=== PATIENT | male | born 1945 | race Caucasian/White ===

== ENCOUNTER 2023-11-10 19:10 | Inpatient (IN) | payer MEDICARE, OTHER, SELFPAY ==
--- NOTE | ~2023-11-10 | XR_ITS ---
EXAMINATION: XR CHEST 2 VIEWS CLINICAL INFORMATION: Weakness. COMPARISON: None. TECHNIQUE: Frontal and lateral views of the chest were obtained. FINDINGS: The heart, great vessels, pulmonary vasculature and mediastinum are normal. The lungs show no focal infiltrate, effusion or pneumothorax. There is no acute osseous abnormality. XR/XR chest 2V IMPRESSION: No active cardiopulmonary disease.
--- NOTE | ~2023-11-10 | CT_ITS ---
EXAMINATION: CT head/brain wo IV con CLINICAL INFORMATION: Reason for Exam AMS COMPARISON: CT head 11/10/2023 TECHNIQUE: Contiguous axial imaging was performed from the skull base to vertex without intravenous contrast. Sagittal and coronal reformatted images were obtained. This CT examination was performed using dose optimization techniques as appropriate, variously including the following: * Automated exposure control * Adjustment of mA and/or kV according to patient size (this includes techniques or standardized protocols for targeted exams where dose is matched to indication/reason for exam; i.e. extremities or head) Use of iterative reconstruction technique DLP: 709 mGy-cm FINDINGS: Mild global cerebral volume loss. Patchy periventricular and deep white matter hypoattenuation is nonspecific but likely reflects sequelae of mild chronic microangiopathy. No territorial loss of vega-white differentiation. No acute intracranial hemorrhage or extra-axial fluid collection. No mass lesion, significant mass effect, or herniation pattern. Intracranial calcific atherosclerotic disease. The orbits are grossly normal. Paranasal sinuses and mastoid air cells are well aerated. 8 mm osteoma within the right frontoethmoidal recess. Osseous structures are intact. CT/CT head/brain wo IV con IMPRESSION: 1. No acute intracranial abnormality. Specifically, no CT evidence of acute intracranial hemorrhage, significant mass effect, hydrocephalus, or large territorial infarction. 2. Stable chronic findings as above.
--- NOTE | ~2023-11-10 | FL_ITS ---
FLUOROSCOPIC GUIDED LUMBAR PUNCTURE INDICATION: Concern for encephalitis TECHNIQUE/FINDINGS: Risks and benefits and possible complications were discussed with the patient's spouse and the consent form was signed. Patient was placed prone on the fluoroscopy table. The back was prepped and draped in routine sterile fashion. Betadine was used as a skin antiseptic. Utilizing fluoroscopic guidance, the L4-5 level was accessed with a 22 gauge quinkie spinal needle and clear CSF fluid obtained. Opening pressure was unable to be obtained due to the low pressure of the CSF. The flow of CSF fluid intermittently increased with any Valsalva movements, then immediately drop. 8 cc of fluid was sent for analysis. The needle was removed without immediate complications. Total fluoroscopy time: 1.05 minutes min Dose = 84.2 mGy DAP = 92.5 dGym2 FL/FL guided lumbar puncture LP IMPRESSION: Successful fluoroscopic lumbar puncture. -Opening pressure was unable to be obtained due to the low pressure of the CSF. The flow CSF of fluid intermittently increased with any Valsalva movements, which suggests a central canal stenosis at a higher level or myelographic block. An MRI of the spine could investigate this on a nonemergent basis. This procedure was performed by Hector Cota PA-C and supervised by Dr. Ferrari.
--- NOTE | ~2023-11-10 | CT_ITS ---
EXAMINATION: CT HEAD WITHOUT CONTRAST CLINICAL INFORMATION: Altered mental status COMPARISON: None TECHNIQUE: Contiguous axial imaging was performed from the skull base to vertex without intravenous administration of contrast. This CT examination was performed using dose optimization techniques as appropriate, variously including the following: *Automated exposure control *Adjustment of mA and/or kV according to patient size (this includes techniques or standardized protocols for targeted exams where dose is matched to indication/reason for exam; i.e. extremities or head) *Use of iterative reconstruction technique DLP: 702.11 mGy-cm FINDINGS: There is no evidence of acute intracranial hemorrhage or territorial infarction. Chronic white matter small vessel ischemic changes. Cerebral atrophy. No abnormal mass effect or midline shift is seen. Power to white matter differentiation is well preserved. No extra-axial fluid collections are identified. The ventricles are normal in size. There is no abnormal attenuation within the brain parenchyma. The osseous structures and soft tissues are normal. The mastoid air cells and visualized portions of the paranasal sinuses are well aerated. Atherosclerotic calcifications with slightly increased hyperattenuation of cerebral vasculature. CT/CT cervical spine wo IV con IMPRESSION: 1. No acute intracranial pathology. 2. Chronic white matter small vessel ischemic changes. EXAMINATION: Noncontrast CT scan of the cervical spine. INDICATION: Altered mental status COMPARISON: None. TECHNIQUE: Helical, multidetector axial images were obtained from the occiput to the upper thorax. Coronal and sagittal reformats of the cervical spine were provided for interpretation. DLP: 434.45 mGy-cm FINDINGS: No acute fractures or dislocations of the cervical spine are seen. Straightening the normal cervical curvature. Multilevel degenerative changes. Anatomic alignment and positioning of the vertebral bodies and posterior elements is noted. The atlantoaxial joint and craniovertebral articulations are normal without evidence of subluxation. There is no prevertebral soft tissue swelling. Calcified nodules of the bilateral thyroid lobes largest measuring up to 1.1 cm. Based on the recommendations of the ACR Incidental Thyroid Findings Committee (JACR 2014; 12(2):143-50), no imaging followup is recommended for incidental thyroid nodules with largest axial dimension less than 1.5 cm in patients greater than 35 years of age in the absence of high risk imaging features, symptomatic thyroid disease, or increased risk for thyroid cancer. Visualized portions of the lungs are unremarkable. IMPRESSION: 1. No acute visible fracture or dislocation. 2. Straightening the normal cervical curvature. 3. Multilevel degenerative changes.
--- NOTE | ~2023-11-10 | MR_ITS ---
EXAMINATION: MR BRAIN WITHOUT CONTRAST CLINICAL INFORMATION: Global amnesia. COMPARISON: CT head from 11/10/2023. TECHNIQUE: MRI of the brain was obtained using routine sequences without contrast. FINDINGS: No focal restricted diffusion is demonstrated to suggest acute or subacute cerebral ischemia. No evidence of acute or chronic hemorrhagic products on heme-sensitive imaging. Scattered and partially confluent periventricular, deep white matter, and brainstem T2 FLAIR hyperintensities consistent with mild to moderate underlying microangiopathy. Proportional prominence of the ventricles and sulcal spaces without evidence of obstructive hydrocephalus. No abnormal mass effect. No midline shift. Normal appearance of the pituitary gland. Normal positioning of the cerebellar tonsils. Normal arterial and venous vascular flow voids are present. Normal, homogeneous marrow signal. Moderate degenerative spondylosis arthropathy of the visualized upper cervical spine. Mild mucosal thickening of the paranasal sinuses. No signal abnormalities within the mastoids. MR/MR head/brain wo con IMPRESSION: 1. No acute intracranial abnormalities. 2. Mild to moderate underlying microangiopathy and generalized cerebral volume loss.
[2023-11-10 19:28] VITALS: BP 166/102; PULSE 85; O2SAT 99
[2023-11-10 19:31] VITALS: BP 182/89; PULSE 74; RESP 16; TEMP 36.6; O2SAT 100; BMI 27.4
--- NOTE | 2023-11-10 19:35 | ECG_ITS ---
Test Reason : PAIN Blood Pressure : / mmHG Vent. Rate : 070 BPM Atrial Rate : 070 BPM P-R Int : 156 ms QRS Dur : 110 ms QT Int : 400 ms P-R-T Axes : 040 -32 035 degrees QTc Int : 432 ms Normal sinus rhythm Left axis deviation Abnormal ECG No previous ECGs available Referred By: Hector Armijo Electronically Signed By:RACHELLE DOSS MD
[2023-11-10 19:39] VITALS: BP 182/89; PULSE 74; RESP 16; TEMP 36.6; O2SAT 98
--- NOTE | 2023-11-10 19:40 | PC.NURSE ---
Pt a&ox1, no signs of distress. Pt resting comfortaby in bed. Plan of care ongoing.
[2023-11-10 19:58] LABS: MANUAL DIFF FLAG NO
[2023-11-10 20:00] LABS: Basophils Absolute Auto 0.1 X10*3/uL (0.0-0.2); Basophils Percent Auto 0.6 % (0-2); Eosinophils Percent Auto 0.5 % (0-4); Hematocrit 49.2 % (42.0-52.0); Hemoglobin 17.6 g/dl (14.0-18.0); Imm Gran Abs Auto 0.03 X10*3/uL (0.00-0.03); Imm Gran Pct Auto 0.4 % (0.0-0.4); Lymphocytes Absolute Auto 0.9 X10*3/uL (1.2-4.9); Lymphocytes Percent Auto 10.3 % (20-40); Mean Corpuscular HGB Conc 35.8 g/dl (31.0-36.0); Mean Corpuscular Hemoglobin 35.1 pg (27.0-33.0); Mean Corpuscular Volume 98.2 fL (80.0-98.0); Mean Platelet Volume 9.4 fL (9.4-12.4); Monocytes Absolute Auto 0.9 X10*3/uL (0.1-1.2); Monocytes Percent Auto 9.9 % (2-11); Neutrophils Absolute Auto 6.7 x10*3/uL (2.0-8.3); Neutrophils Percent Auto 78.3 % (45-73); Platelet Count 219 X10*3/uL (160-400); Red Blood Count 5.01 X10*6/uL (4.60-5.80); Red Cell Distribution Width 12.8 % (11.0-16.0); White Blood Count 8.6 X10*3/uL (4.8-10.8)
--- NOTE | 2023-11-10 20:04 | ED.GENADULT ---
HPI - General Adult General Chief complaint: Altered Mental Status Stated complaint: found on side road, A&O x1, confused Time Seen by Provider: 11/10/23 19:13 Source: patient and EMS Mode of arrival: EMS Limitations: other (Patient is a poor historian) History of Present Illness ED Provider: Aleksander HPI narrative: 78-year-old male arrives via EMS He has no complaints and states ?I just went out for a drive. The patient was apparently found in the side of the road. He reports he drove from [place], [place] and had to get gas. The patient reports he lives alone. He states that he feels well. He denies any pain He denies any medical history and states that he does not take any medications There are no signs of trauma On arrival to the ED, the patient's vital signs are significant for hypertension of 182/89, otherwise vital signs are within normal limits. Related Data Allergies Allergy/AdvReac Type Severity Reaction Status Date / Time Penicillins Allergy Rash Verified 11/10/23 20:01 Review of Systems Constitutional: Constitutional: Denies body ache(s), Denies chills, Denies fever(s) and Denies headache(s) Eyes: Eyes: Denies blurry vision ENT: Denies vertigo, Denies dizziness and Denies headache(s) Cardiovascular: Cardiovascular: Denies chest pain and Denies dyspnea Respiratory: Respiratory: Denies cough and Denies dyspnea Gastrointestinal: Gastrointestinal: Denies abdominal pain, Denies nausea and Denies vomiting Musculoskeletal: Musculoskeletal: Denies back pain Integumentary/Breasts: Skin/Breast: Denies rash Neurologic: Denies vertigo, Denies dizziness and Denies headache(s) [facility] Social History Social History Smoked in Last 30 Days: No Use of substances other than those prescribed or required for medical reasons: No Do you have a plan to hurt others: No Plan Physical Exam ED Vital Signs: Vital Signs - 24 hr 11/10/23 19:31 11/10/23 19:39 11/10/23 23:28 Temperature 97.9 F 97.9 F 98.3 F Pulse Rate 74 74 74 Respiratory Rate 16 16 12 Blood Pressure 182/89 H 182/89 H 150/79 H Pulse Oximetry 100 98 96 Oxygen Delivery Method Room Air Room Air Room Air BMI result Body Mass Index 27.4 Const General: healthy appearing, comfortable, no acute distress, alert and awake Nutritional Appearance: well nourished Orientation/consciousness: oriented to person, No oriented to place and No oriented to time HENKS Head: Yes normocephalic and Yes atraumatic Eyes Eyelids: Yes eyelids normal Conjunctivae: conjunctivae normal Sclerae: sclerae normal Corneas: corneas normal Pupils: Equal, round and reactive pupils present EOM: EOMs intact bilaterally Neck Neck: Yes full ROM Resp Effort & Inspection: normal respiratory effort, able to speak in complete sentences, no audible wheezes and not labored Auscultation: clear to auscultation bilaterally Cardio Rate: regular rate Rhythm: regular rhythm GI Inspection: No distended Palpation (GI): Soft to palpation, not firm, nontender, no guarding and not rigid Skin General skin exam: elasticity normal Neuro General: oriented to person, No oriented to place and No oriented to time Cranial nerves: Yes CN's II-XII intact bilaterally, Yes Equal, round and reactive pupils present and Yes Bilaterally intact EOM present Cognition (Neuro): normal cognition Extrem Other: Moving all extremities well without any obvious deformities Course Reevaluation(s) Reevaluation #1: The patient's daughter called to discuss with nursing. Apparently, the patient went missing around 10:00 a.m. and family put out a code silver at 10:00 a.m. this morning. When he ran out of gas, [employer] police found the patient. Apparently the patient does not carry an official diagnosis of dementia Time: 20:10 Reevaluation #2: Patient's workup largely unremarkable, there is no metabolic cause for his symptoms. Unfortunately attempts to reach back out to the patient's daughter have been unsuccessful. The patient will remain in the ER as a case management social hold until the morning. Time: 23:01 Medical Decision Making Medical Decision Making MDM Narrative: 78-year-old male with unknown past medical history presents for evaluation after being found on the side of the road. The patient has no complaints. We do not know his medical history, any medications that he takes. He appears well, stable without any evidence of traumatic injuries. He is afebrile. He has no respiratory or GI symptoms. He is alert and oriented to person only, but he is answering questions appropriately. His presentation is most likely consistent with dementia. However given that we have no history for the patient we will begin and drug screen. Differential Diagnosis Differential Diagnoses: The differential diagnosis associated with the presentation includes Alzheimer's dementia Delirium Metabolic encephalopathy Drug toxicity Altered mental status CVA Intracranial hemorrhage Lab Data 11/10/23 19:50 11/10/23 19:50 Labs: Lab Results 11/10/23 11/10/23 Range/Units 19:50 20:12 WBC 8.6 (4.8-10.8) X10*3/uL RBC 5.01 (4.60-5.80) X10*6/uL Hgb 17.6 (14.0-18.0) g/dl Hct 49.2 (42.0-52.0) % MCV 98.2 H (80.0-98.0) fL MCH 35.1 H (27.0-33.0) pg MCHC 35.8 (31.0-36.0) g/dl RDW 12.8 (11.0-16.0) % Plt Count 219 (160-400) X10*3/uL MPV 9.4 (9.4-12.4) fL Immature Gran % (Auto) 0.4 (0.0-0.4) % Neut % (Auto) 78.3 H (45-73) % Lymph % (Auto) 10.3 L (20-40) % [place] % (Auto) 9.9 (2-11) % Eos % (Auto) 0.5 (0-4) % Baso % (Auto) 0.6 (0-2) % Lymph # (Auto) 0.9 L (1.2-4.9) X10*3/uL [place] # (Auto) 0.9 (0.1-1.2) X10*3/uL Eos # (Auto) 0.0 (0.0-0.4) X10*3/uL Baso # (Auto) 0.1 (0.0-0.2) X10*3/uL Abs Immat Gran (auto) 0.03 (0.00-0.03) X10*3/uL Absolute Neuts (auto) 6.7 (2.0-8.3) x10*3/uL Absolute Nucleated RBC 0.000 (0.0-0.012) X10*3/uL Nucleated RBC % (auto) 0.0 (0.0-0.2) /100WBC Sodium 142 (135-145) mmol/L Potassium 4.3 (3.3-5.1) mmol/L Chloride 109 H (96-108) mmol/L Carbon Dioxide 23 (22-29) mmol/L Anion Gap 14 (12-20) BUN 14 (9-16) mg/dL Creatinine 0.93 (0.5-1.4) mg/dL Estim Creat Clear Calc 67.5 Estimated GFR > 60 POC Glucose 123 H (60-115) mg/dL Random Glucose 138 H (60-115) mg/dL Calcium 9.8 (8.4-10.2) mg/dL Total Bilirubin 1.3 H (0.0-1.0) mg/dL AST 34 (5-37) U/L ALT 45 H (0-40) U/L Alkaline Phosphatase 53 (39-117) U/L Ammonia 25 (13-55) umol/L Total Protein 7.2 (6.5-8.0) g/dL Albumin 4.1 (3.5-5.0) g/dL Lipase 21 (8-78) U/L Ethyl Alcohol < 10 mg/dL Discharge Plan Discharge Clinical Impression: Confusion Patient Disposition: Still a Patient Print Language: [place]ian
--- NOTE | 2023-11-10 20:10 | PC.NURSE ---
This RN received a call from pts daughter Fallon @ [phone]. Per daughter pt left home this am @ 10am and never returned so they placed a code silver on him. Pt has an allergy to penicillin and has a pmh of HTN, DM, Hyperlipidemia. Daughter also reports pt does not have a hx of dementia. Provider Paulo updated. Plan of care ongoing.
[2023-11-10 20:18] LABS: Glucose, Whole Blood 123 mg/dL (60-115)
[2023-11-10 20:30] LABS: Alanine Aminotransferase 45 U/L (0-40); Albumin Level 4.1 g/dL (3.5-5.0); Alkaline Phosphatase 53 U/L (39-117); Anion Gap 14 (12-20); Aspartate Amino Transferase 34 U/L (5-37); Bilirubin Total 1.3 mg/dL (0.0-1.0); Blood Urea Nitrogen 14 mg/dL (9-16); Calcium 9.8 mg/dL (8.4-10.2); Carbon Dioxide 23 mmol/L (22-29); Chloride 109 mmol/L (96-108); Creatinine Clr Calc Pharmacy 67.5; Estimated Glomerular Filt Rate > 60; Ethanol < 10 mg/dL; Glucose Random 138 mg/dL (60-115); Lipase 21 U/L (8-78); Potassium 4.3 mmol/L (3.3-5.1); Sodium 142 mmol/L (135-145); Total Protein 7.2 g/dL (6.5-8.0)
[2023-11-10 20:49] LABS: Ammonia 25 umol/L (13-55)
--- NOTE | 2023-11-10 21:11 | PC.NURSE ---
This RN attempted to call pts daughter and unable to reach with # left. [phone] Plan of care ongoing.
[2023-11-10 23:28] VITALS: BP 150/79; PULSE 74; RESP 12; TEMP 36.8; O2SAT 96
--- NOTE | 2023-11-11 02:06 | PC.NURSE ---
Pt requested and given urinal. Plan of care ongoing.
[2023-11-11 03:28] LABS: Appearance Urine Clear; Color Urine Yellow; Glucose Urine UA >=1000 mg/dL (Negative); Leukocyte Esterase Urine Negative (Negative); Nitrite Urine Negative (Negative); PH 5.5 (5.0-9.0); Specific Gravity - Urine >= 1.030 (1.005-1.025); UMIC TRIGGER UACC YES; Urine Blood Negative (Negative); Urine Ketones 80 mg/dL (Negative); Urine Protein Negative (Neg-Trace)
[2023-11-11 03:31] LABS: Bacteria Urine None Seen (None Seen); Hyaline Casts Urine 0-2 /LPF (0-2); RBC Urine 0-2 /HPF (0-2); Squamous Epithelial Cell Urine 0-2 /HPF (0-2); WBC Urine 0-5 /HPF (0-5)
[2023-11-11 03:36] LABS: Amphetamine Screen Urine Not Detected (Not Detect); Barbiturates, Urine Not Detected (Not Detect); Benzodiazepines Screen Urine Not Detected (Not Detect); Buprenorphine Scr Not Detected (Not Detect); Cannabinoid Screen Urine Not Detected (Not Detect); Cocaine Screen Urine Not Detected (Not Detect); Fentanyl, urine Not Detected (Not Detect); Methadone Screen, Urine Not Detected (Not Detect); Opiate Screen Urine Not Detected (Not Detect); Oxycodone Screen Urine Not Detected (Not Detect); Phencyclidine Screen Urine Not Detected (Not Detect)
[2023-11-11 06:14] VITALS: BP 160/84; PULSE 70; RESP 16; TEMP 36.4; O2SAT 98
--- NOTE | 2023-11-11 06:38 | PC.NURSE ---
This RN called daughter Fallon @ [phone] and this time phone finally rang. Daughter will come and pick him up pt but lives an hour away.
--- NOTE | 2023-11-11 08:06 | PC.NURSE ---
patient resting quietly, daughter is on her way to pick patient up for d/c. respirations equal and unlabored
--- NOTE | 2023-11-11 09:30 | PC.NURSE ---
called patients daughter, she states she can not come orange picking supervisor patient until she can speak to her mom ( who is blind and on oxygen) to orange picking supervisor enrique father, and she needs to get his car out of impound before coming to get patient. patient daughter states she is unsure when she will be here to pick him up, it may be closer to 11am.
--- NOTE | 2023-11-11 12:59 | ECG_ITS ---
Test Reason : AMS Blood Pressure : / mmHG Vent. Rate : 073 BPM Atrial Rate : 073 BPM P-R Int : 144 ms QRS Dur : 096 ms QT Int : 404 ms P-R-T Axes : 050 -35 025 degrees QTc Int : 445 ms Normal sinus rhythm Left axis deviation Abnormal ECG When compared with ECG of 10-NOV-2023 19:40, No significant change was found Referred By: Fitz Hale Electronically Signed By:LARISSA KENNEDY
[2023-11-11 13:26] LABS: Venous Blood Gas Refer to POC result
[2023-11-11 13:31] LABS: VBG Base Excess -5.3 mmol/L; VBG HCO3 18 mmol/L (22-26); VBG pCO2 30 mmHg; VBG pH 7.38 (7.32-7.43); VBG pO2 84 mmHg
[2023-11-11 13:32] VITALS: BP 160/79; PULSE 85; RESP 25; TEMP 36.3; O2SAT 98
--- NOTE | 2023-11-11 13:36 | PC.NURSE ---
patient family at bedside, patient is in catatonic state, patient mentation is waxing and weaning, neuros intact, patients eyes track movement . patient not able to follow commands, will nod head yes and no to questions at times. provider alerted of changed in patient status, POC obtained 84, IV placed, labs drawn. patient changed into hospital attire, placed on monitor, VSS.
--- NOTE | 2023-11-11 13:42 | PC.NURSE ---
patient repositioned in bed, patient given sip of iced tea and water, patient looked at this RN and stated, this tastes damn good and laughed. family at bedside
[2023-11-11 13:56] LABS: MANUAL DIFF FLAG NO
[2023-11-11 13:57] LABS: Basophils Percent Auto 0.4 % (0-2); Eosinophils Percent Auto 0.4 % (0-4); Hematocrit 50.1 % (42.0-52.0); Hemoglobin 17.8 g/dl (14.0-18.0); Imm Gran Abs Auto 0.03 X10*3/uL (0.00-0.03); Imm Gran Pct Auto 0.3 % (0.0-0.4); Lymphocytes Absolute Auto 1.1 X10*3/uL (1.2-4.9); Mean Corpuscular HGB Conc 35.5 g/dl (31.0-36.0); Mean Corpuscular Volume 98.6 fL (80.0-98.0); Mean Platelet Volume 9.7 fL (9.4-12.4); Monocytes Absolute Auto 0.9 X10*3/uL (0.1-1.2); Monocytes Percent Auto 9.8 % (2-11); Neutrophils Absolute Auto 7.1 x10*3/uL (2.0-8.3); Neutrophils Percent Auto 77.1 % (45-73); Platelet Count 239 X10*3/uL (160-400); Red Blood Count 5.08 X10*6/uL (4.60-5.80); Red Cell Distribution Width 12.7 % (11.0-16.0); White Blood Count 9.2 X10*3/uL (4.8-10.8)
[2023-11-11 14:03] LABS: Prothrombin Time 12.3 SEC (11.1-13.3)
[2023-11-11 14:14] VITALS: BP 159/81; PULSE 74; RESP 26; O2SAT 99
[2023-11-11 14:17] LABS: B Type Natriuretic Peptide 23 pg/mL (<100)
[2023-11-11 14:18] LABS: Alanine Aminotransferase 45 U/L (0-40); Albumin Level 4.3 g/dL (3.5-5.0); Alkaline Phosphatase 55 U/L (39-117); Anion Gap 18 (12-20); Aspartate Amino Transferase 25 U/L (5-37); Bilirubin Direct 0.5 mg/dL (0.0-0.5); Bilirubin Total 1.7 mg/dL (0.0-1.0); Blood Urea Nitrogen 21 mg/dL (9-16); C Reactive Protein 0.11 mg/dL (< or = 0.50); Calcium 9.8 mg/dL (8.4-10.2); Carbon Dioxide 19 mmol/L (22-29); Chloride 108 mmol/L (96-108); Creatinine Clr Calc Pharmacy 77.5; Estimated Glomerular Filt Rate > 60; Glucose Random 104 mg/dL (60-115); Magnesium 2.2 mg/dL (1.6-2.6); Potassium 4.2 mmol/L (3.3-5.1); Sodium 141 mmol/L (135-145); Total Protein 7.5 g/dL (6.5-8.0)
[2023-11-11 14:20] LABS: Acetaminophen LAB < 3 mcg/mL (<30); Salicylate < 5.0 mg/dL (15-30); Troponin-I High Sensitivity < 2.7 ng/L (<3.5-35.0)
--- NOTE | 2023-11-11 14:26 | PC.NURSE ---
patient sitting up in bed, awake and alert, had ice cream as a snack, now eating potato chips.
[2023-11-11] MEDS: Midazolam HCl/PF 2 MG/2 ML VIAL 6 MG IVPUSH (14:29)
[2023-11-11 14:33] LABS: Thyroid Stimulating Hormone 1.74 uIU/mL (0.32-4.0)
[2023-11-11 14:47] LABS: Erythrocyte Sedimentation Rate 2 MM/HR (0-15)
[2023-11-11 15:19] VITALS: BP 124/72; PULSE 85; RESP 22; O2SAT 95
[2023-11-11] MEDS: 0.9 % Sodium Chloride 1,000 ML 999 ML IV (15:21)
[2023-11-11 19:22] VITALS: BP 137/83; PULSE 94; RESP 17; TEMP 36.7; O2SAT 98
[2023-11-11 20:06] LABS: Glucose, Whole Blood 87 mg/dL (60-115)
--- NOTE | 2023-11-12 | EEG_ITS ---
This is a 16-channel EEG with an EKG lead. The patient is reported drowsy during the tracing. Background EEG rhythm is mixed theta, beta; medium amplitude with intermittent sharply contoured theta range activity in right frontocentral area. Cardiac lead did not reveal any significant arrhythmia. Photic stimulation did not produce any significant driving. Hyperventilation was not performed. IMPRESSION: Mildly abnormal EEG suggestive of right frontocentral abnormality with suspicion of underlying structural abnormality such as a stroke with some irritability that could cause complex partial seizures. MD UMAIR Hernandez/GEOVANNY / [id number]
[2023-11-12 03:52] VITALS: BP 150/74; PULSE 78; RESP 17; TEMP 36.4; O2SAT 98
--- NOTE | 2023-11-12 06:01 | MHC.EDTECH ---
PT resting in bed PT expresses no other needs at this time Call light within reach Plan of care ongoing
--- NOTE | 2023-11-12 08:36 | MHC.CM.ED ---
Case management consult received over the weekend. Per Care Team assessment, psych consult is pending for possible inpatient psych admissions. CM consult deferred at this time.
--- NOTE | 2023-11-12 10:03 | PC.NURSE ---
this RN resumed care of pt at this time. pt responsive to verbal stimuli when spoken to. makes eye contact then slowly gazes away. neuros intact. pt not responding to this RN's questions at this time. pt resting in stretcher in no apparent distress. no sob/wob noted. respirations even/unlabored. pt waiting for psych consult to be completed. plan of care ongoing. call lisa placed within reach.
--- NOTE | 2023-11-12 12:15 | PHA.MEDREC ---
Pharmacy Consult ? Medication Reconciliation Pharmacy has completed the medication reconciliation. Spoke to daughter Fallon over the phone to confirm her dads medications.
--- NOTE | 2023-11-12 12:23 | PC.NURSE ---
pt seen by hospitalist at this time. upon pt assessment - pt alert and oriented x 0. pt has no recollection to memory at this time. pt unaware on what his name is even after hospitalist just notified him of his name. pt also unaware on where he is, why he's here, or what the year is. pt also does not seem to be concerned about having no recollection. pt continues to sit calm/in no apparent distress in the stretcher at this time. neuros remain intact. no sob/wob noted. respirations even/unlabored. plan of care ongoing. call lisa placed within reach.
--- NOTE | 2023-11-12 12:39 | PM.IMHP ---
History of Present Illness Date of Service: 11/12/23 Attending physician on admission: Med Forde Chief Complaint: amnesia 78 year old male with history on non insulin dependent type 2 diabetes, hld, htn presented to the ED via EMS [place] [address] [place] [facility] state police. The patient resides in [place], visited a [facility] where he left his ID and then drove to [place] for an unknown reason but ultimately ran out of gas on the highway. Upon questioning, the police found him confused and called EMS for transport and evaluation in the ED. Since in the ED, the patient has exhibited global amnesia, having no recollection of why he is here, about significant details of his life, and at times unable to recall his own name. He has been boarding in the ED for the past 2 days with unremarkable medical work up and upon evaluation by care team and psychiatry was recommended for medical admission for neurological evaluation. Upon questioning, the patient is unable to tell me who he is, does not even recall his name when given the information. He does not know where he is but recognizes that he may be in a hospital when asked. He does not know the year. He does not recall his (whom he lives with and cares for), his daughter, or where he resides. This author reminds him of his name and he is still unable to recall the name when asked again minutes later. Upon questioning his daughter, the patient has been exhibiting anxiety and panic attacks over the last few months with concerns that he cannot care for his , about HCP and living will etc. She states he has been acting strange for about 2 months. He was recently started on buspar by pcp but only took a few doses. He does not use any substances. He is calm upon questioning, not exhibiting restlessness, agitation, or anxiety. He has no complaints or concerns about him being here. Since arrival has been hypertensive, but vitals otherwise stable. He has not received his lisinopril in the ED at this time. Hematology studies unremamarkable. Renal function normal, no uremia. Lytes WNL. Glucose 116. Ammonia WNL. TSH WNL. VBG reassuring, no hypercapnia. Vitamin B12 and folic acid levels pending. CXR unremarkable. Head CT does show some chronic microvascular changes but no acute abnormality. Cervical spine CT negative for acute osseous abnormality. UTox negative. UA not indicative of infection. EKG shows NSR, no actue ischemic changes. Review of Systems Review of Systems: Yes Unobtainable due to mental status [facility] Medical History HLD (hyperlipidemia) HTN (hypertension) Type 2 diabetes mellitus Social History Household Members: Spouse Housing: House Do you presently have visiting nurse or other home services: No Patient Tobacco Use Status: Never used Tobacco Smoked in Last 30 Days: No Use of substances other than those prescribed or required for medical reasons: No Currently Displaying Signs/Symptoms of Drug Intoxication Withdrawal: No Do you feel safe in your current relationship?: Yes Advance Directives: No Advance Directives Information Provided: No Do you have a plan to hurt others: No Plan Recently lost weight without trying: Unsure Meds Allergies Allergy/AdvReac Type Severity Reaction Status Date / Time Penicillins Allergy Rash Verified 11/10/23 20:01 Active Medications: Current Medications Acetaminophen (Acetaminophen 325 Mg Tablet) 650 mg PO Q6H PRN PRN Reason: Pain, Mild (1-3), h/a, fever Enoxaparin Sodium (Enoxaparin Sodium 40 Mg/0.4 Ml Syringe) 40 mg SUBCUT Q24H [facility] Glucose (Glucose Gel 15 Gm Gel..Gram.) 15 gm PO Q15M PRN; Protocol PRN Reason: per Hypoglycemia Standing Ord. Dextrose (D10) 250 mls @ 750 mls/hr IV Q15M PRN; Protocol PRN Reason: per Hypoglycemia Standing Ord. Insulin Human Lispro (Insulin Lispro 100 Unit/Ml 3 Ml Vial) 0 unit SUBCUT QIDACHS [facility]; Protocol Magnesium Hydroxide (Milk Of Magnesia 30 Ml Oral.Susp) 30 ml PO DAILY PRN PRN Reason: Constipation Ondansetron HCl (Ondansetron Hcl 4 Mg/2 Ml Vial) 4 mg IVPUSH Q8H PRN PRN Reason: Nausea and Vomiting Sodium Chloride (0.9 % Sodium Chloride Flush 3 Ml Syringe) 3 ml IVFLUSH QSHIFT [facility] Home Medications ?Medication ?Instructions ?Recorded ?Confirmed ?Last Taken ?Type buspirone 7.5 mg tablet 7.5 mg PO BID 11/12/23 11/12/23 Unknown History linagliptin 5 mg tablet (Tradjenta) 5 mg PO DAILY 11/12/23 11/12/23 11/10/23 06:00 History lisinopril 20 mg tablet 20 mg PO DAILY 11/12/23 11/12/23 11/10/23 06:00 History simvastatin 20 mg tablet 20 mg PO BEDTIME 11/12/23 11/12/23 11/09/23 19:00 History Physical Exam Vital Signs and Narrative: Vital Signs: Last Vital Signs Temp 97.6 F 11/12/23 03:52 Pulse 78 11/12/23 03:52 Resp 17 11/12/23 03:52 BP 150/74 H 11/12/23 03:52 Pulse Ox 98 11/12/23 03:52 O2 Del Method Room Air 11/12/23 03:52 BMI result Body Mass Index 27.4 Constitutional - Awake and Alert, No apparent distress Eyes - PERRLA, EOMI Cardiovascular - S1S2, RRR, No edema Respiratory - Normal lung expansion, Normal respiratory effort, No respiratory distress, CTA bilaterally Gastrointestinal - NT / ND; +BS; No rebound or guarding Extremities - no calf tenderness bilaterally, no swelling Skin - Warm/Dry Neurological - Alert & oriented x3, CN II-XII in tact, 5/5 strength BUE and BLE, symmetric patellar reflexes, downgoing babinski Psychological - calm, not anxious appearing, affect somewhat flat. Does not recall any part of his life including his name even when prompted with name, cannot recall Results Labs 11/12/23 13:20 11/12/23 13:20 Labs: Laboratory Results - last 24 hr 11/11/23 11/11/23 11/11/23 12:52 13:25 13:30 MCV 98.6 H MCH 35.0 H MCHC 35.5 RDW 12.7 Plt Count 239 MPV 9.7 Immature Gran % (Auto) 0.3 Neut % (Auto) 77.1 H Lymph % (Auto) 12.0 L Ector % (Auto) 9.8 Eos % (Auto) 0.4 Baso % (Auto) 0.4 Lymph # (Auto) 1.1 L Ector # (Auto) 0.9 Eos # (Auto) 0.0 Baso # (Auto) 0.0 Abs Immat Gran (auto) 0.03 Absolute Neuts (auto) 7.1 Absolute Nucleated RBC 0.000 Nucleated RBC % (auto) 0.0 ESR 2 PT 12.3 INR 1.0 VBG pH 7.38 VBG pCO2 30 VBG pO2 84 VBG HCO3 18 L VBG O2 Saturation 99.0 VBG Base Excess -5.3 Anion Gap Estim Creat Clear Calc Estimated GFR POC Glucose 87 Random Glucose Calcium Magnesium Total Bilirubin Direct Bilirubin AST ALT Alkaline Phosphatase Troponin I High Sens < 2.7 C-Reactive Protein B-Natriuretic Peptide 23 Total Protein Albumin TSH Salicylates < 5.0 L Acetaminophen < 3 11/11/23 13:31 MCV MCH MCHC RDW Plt Count MPV Immature Gran % (Auto) Neut % (Auto) Lymph % (Auto) Ector % (Auto) Eos % (Auto) Baso % (Auto) Lymph # (Auto) Ector # (Auto) Eos # (Auto) Baso # (Auto) Abs Immat Gran (auto) Absolute Neuts (auto) Absolute Nucleated RBC Nucleated RBC % (auto) ESR PT INR VBG pH VBG pCO2 VBG pO2 VBG HCO3 VBG O2 Saturation VBG Base Excess Anion Gap 18 Estim Creat Clear Calc 77.5 Estimated GFR > 60 POC Glucose Random Glucose 104 Calcium 9.8 Magnesium 2.2 Total Bilirubin 1.7 H Direct Bilirubin 0.5 AST 25 ALT 45 H Alkaline Phosphatase 55 Troponin I High Sens C-Reactive Protein 0.11 B-Natriuretic Peptide Total Protein 7.5 Albumin 4.3 TSH 1.74 Salicylates Acetaminophen Assessment and Plan (1) Amnesia, global, transient: Status: Acute Plan 78 year old male with history on non insulin dependent type 2 diabetes, hld, htn to be observed for global amnesia #Global amnesia -pt exhibiting both anterograde and retrograde amnesia, found confused walking on the highway. Unable to recall any feature of his life including his own name -Head CT shows chronic microangiopathic but no acute intracranial abnormality or evidence of infarction -infectious workup negative. No uremia, ammonia level normal. TSH normal, VBG reassuring without hypercapnia. Folic acid 11.7, vitamin B12 slightly low at 152. Add vitamin b12 1000mg IM q21d per neuro. Add thiamine and folic acid given unknown history of etoh abuse -tick panel and lyme pcr ordered. 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 Quality Stroke Does the patient have a stroke diagnosis?: No VTE Prior VTE?: No VTE Risk Level:: Medical - moderate - high VTE Device Contraindication: Treatment Not Indicated VTE Drug Contraindication: N/A - Med Ordered
[2023-11-12] MEDS: lisinopriL 20 MG TABLET PO (13:17)
[2023-11-12] MEDS: Enoxaparin Sodium 40 MG/0.4 ML SYRINGE SUBCUT (13:18)
[2023-11-12 13:22] LABS: MANUAL DIFF FLAG NO
[2023-11-12 13:27] LABS: Basophils Percent Auto 0.3 % (0-2); Eosinophils Absolute Auto 0.1 X10*3/uL (0.0-0.4); Eosinophils Percent Auto 0.6 % (0-4); Hematocrit 45.9 % (42.0-52.0); Hemoglobin 16.2 g/dl (14.0-18.0); Imm Gran Abs Auto 0.04 X10*3/uL (0.00-0.03); Imm Gran Pct Auto 0.4 % (0.0-0.4); Lymphocytes Percent Auto 10.3 % (20-40); Mean Corpuscular HGB Conc 35.3 g/dl (31.0-36.0); Mean Corpuscular Hemoglobin 34.5 pg (27.0-33.0); Mean Corpuscular Volume 97.9 fL (80.0-98.0); Mean Platelet Volume 9.3 fL (9.4-12.4); Monocytes Percent Auto 10.4 % (2-11); Neutrophils Absolute Auto 7.7 x10*3/uL (2.0-8.3); Platelet Count 207 X10*3/uL (160-400); Red Blood Count 4.69 X10*6/uL (4.60-5.80); Red Cell Distribution Width 12.5 % (11.0-16.0); White Blood Count 9.9 X10*3/uL (4.8-10.8)
[2023-11-12 13:39] LABS: Ammonia 25 umol/L (13-55)
[2023-11-12 13:42] LABS: Anion Gap 18 (12-20); Blood Urea Nitrogen 22 mg/dL (9-16); Calcium 9.5 mg/dL (8.4-10.2); Carbon Dioxide 19 mmol/L (22-29); Chloride 108 mmol/L (96-108); Creatinine Clr Calc Pharmacy 82.6; Estimated Glomerular Filt Rate > 60; Glucose Random 116 mg/dL (60-115); Potassium 4.5 mmol/L (3.3-5.1); Sodium 140 mmol/L (135-145)
--- NOTE | 2023-11-12 13:49 | P.CNPS_ITS ---
History of Present Illness Date of Service: 11/12/2023 Chief Complaint: global amnesia Reason for Consult: anterograde amnesia/retrograde amnesia Sources of Information: patient interviewed, chart reviewed and crisis/core team assessment reviewed Additional Sources of Information: [facility] [phone] [facility] Narrative: Mr. aGr was brought via EMS by police on 11/09 after found by police on side of the road apparently confused. 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 It appears he never made it to the [facility]. He lives in [place] and it is unclear as to how he ended up in [facility]. Family issued a silver alert, which then in turn alerted police to search for his car. In the ED, pt reported he lives alone and denied any physical concerns. His utox is negative. CBC without leukocytosis, elevated MCV with no anemia. CMP no electrolyte abnormality. renal function stable, slightly elevation of BUN 21, Cr 0.81, creatinine clearance 77.7. CRP 0.11. TSH 1.74. Afebrile. No signs of respiratory distress. No signs of infection. UA positive for glucose. SBP elevated in 180's. head ct chronic atrophy and microvascular changes, no acute findings although does describe hypoattenuation of cerebral vasculature. Per provider, pt yesterday presented with delayed in speech, at times staring, flaccidity of upper and lower extremities. Due to staring and apparent mutism, he was given versed to r/o catatonia, but no significant improvement. Today, pt seen in the ED. He is alert and in no signs of distress. Pt responds to this poem writer when I call his name. However, when asked if he knows where he is, he states I don't know. When asked if he knows the month, year, date, he also states he does not know where he is. When asked about his personal history, pt states he does not know whether he is or not, or if he has children or not. He does not knows how long he has been here. He does not seemed bothered or concern about not knowing this information. He describes mood as good. He denies any physical concerns. His speech is without delayed in response, slightly more spontaneous.His attention seems to be intact. He does not appear internally preoccupied. No overt delusional content noted or reported other than amnesia. Per daughter, pt last week had some out of character behaviors, like he was running naked around the house and had stated that he was feeling hot. However, to her knowledge, pt was oriented to place, and was able to recognize family. Daughter states he is a very private and he would never be naked around the house. [facility] Medical History HLD (hyperlipidemia) HTN (hypertension) Type 2 diabetes mellitus Diagnostics Vital Signs (24Hr): Vital Signs - 24 hr 11/11/23 14:14 11/11/23 15:19 11/11/23 19:22 Temperature 98.0 F Pulse Rate 74 85 94 Respiratory Rate 26 H 22 H 17 Blood Pressure 159/81 H 124/72 137/83 Pulse Oximetry 99 95 98 Oxygen Delivery Method Room Air Room Air Room Air 11/12/23 03:52 Temperature 97.6 F Pulse Rate 78 Respiratory Rate 17 Blood Pressure 150/74 H Pulse Oximetry 98 Oxygen Delivery Method Room Air BMI result Body Mass Index 27.4 Labs 11/12/23 13:20 11/12/23 13:20 Labs: Laboratory Results - last 48 hr 11/10/23 11/10/23 11/11/23 19:50 20:12 03:17 WBC 8.6 RBC 5.01 Hgb 17.6 Hct 49.2 MCV 98.2 H MCH 35.1 H MCHC 35.8 RDW 12.8 Plt Count 219 MPV 9.4 Immature Gran % (Auto) 0.4 Neut % (Auto) 78.3 H Lymph % (Auto) 10.3 L Ritchie % (Auto) 9.9 Eos % (Auto) 0.5 Baso % (Auto) 0.6 Lymph # (Auto) 0.9 L Ritchie # (Auto) 0.9 Eos # (Auto) 0.0 Baso # (Auto) 0.1 Abs Immat Gran (auto) 0.03 Absolute Neuts (auto) 6.7 Absolute Nucleated RBC 0.000 Nucleated RBC % (auto) 0.0 ESR PT INR VBG pH VBG pCO2 VBG pO2 VBG HCO3 VBG O2 Saturation VBG Base Excess Sodium 142 Potassium 4.3 Chloride 109 H Carbon Dioxide 23 Anion Gap 14 BUN 14 Creatinine 0.93 Estim Creat Clear Calc 67.5 Estimated GFR > 60 POC Glucose 123 H Random Glucose 138 H Calcium 9.8 Magnesium Total Bilirubin 1.3 H Direct Bilirubin AST 34 ALT 45 H Alkaline Phosphatase 53 Ammonia 25 Troponin I High Sens C-Reactive Protein B-Natriuretic Peptide Total Protein 7.2 Albumin 4.1 Lipase 21 TSH Urine Color Yellow Urine Appearance Clear Urine pH 5.5 Ur Specific Prichard >= 1.030 H Urine Protein Negative Urine Glucose (UA) >=1000 H Urine Ketones 80 Urine Blood Negative Urine Nitrite Negative Ur Leukocyte Esterase Negative Urine RBC 0-2 Urine WBC 0-5 Ur Squamous Epith Cells 0-2 Urine Bacteria None Seen Hyaline Casts 0-2 Salicylates Urine Opiates Screen Not Detected Ur Buprenorphine Scrn Not Detected Ur Oxycodone Screen Not Detected Urine Methadone Screen Not Detected Urine Fentanyl Screen Not Detected Acetaminophen Ur Barbiturates Screen Not Detected Ur Phencyclidine Scrn Not Detected Ur Amphetamines Screen Not Detected U Benzodiazepines Scrn Not Detected Urine Cocaine Screen Not Detected U Marijuana (THC) Screen Not Detected Ethyl Alcohol < 10 11/11/23 11/11/23 11/11/23 12:52 13:25 13:30 WBC 9.2 RBC 5.08 Hgb 17.8 Hct 50.1 MCV 98.6 H MCH 35.0 H MCHC 35.5 RDW 12.7 Plt Count 239 MPV 9.7 Immature Gran % (Auto) 0.3 Neut % (Auto) 77.1 H Lymph % (Auto) 12.0 L Ritchie % (Auto) 9.8 Eos % (Auto) 0.4 Baso % (Auto) 0.4 Lymph # (Auto) 1.1 L Ritchie # (Auto) 0.9 Eos # (Auto) 0.0 Baso # (Auto) 0.0 Abs Immat Gran (auto) 0.03 Absolute Neuts (auto) 7.1 Absolute Nucleated RBC 0.000 Nucleated RBC % (auto) 0.0 ESR 2 PT 12.3 INR 1.0 VBG pH 7.38 VBG pCO2 30 VBG pO2 84 VBG HCO3 18 L VBG O2 Saturation 99.0 VBG Base Excess -5.3 Sodium Potassium Chloride Carbon Dioxide Anion Gap BUN Creatinine Estim Creat Clear Calc Estimated GFR POC Glucose 87 Random Glucose Calcium Magnesium Total Bilirubin Direct Bilirubin AST ALT Alkaline Phosphatase Ammonia Troponin I High Sens < 2.7 C-Reactive Protein B-Natriuretic Peptide 23 Total Protein Albumin Lipase TSH Urine Color Urine Appearance Urine pH Ur Specific Prichard Urine Protein Urine Glucose (UA) Urine Ketones Urine Blood Urine Nitrite Ur Leukocyte Esterase Urine RBC Urine WBC Ur Squamous Epith Cells Urine Bacteria Hyaline Casts Salicylates < 5.0 L Urine Opiates Screen Ur Buprenorphine Scrn Ur Oxycodone Screen Urine Methadone Screen Urine Fentanyl Screen Acetaminophen < 3 Ur Barbiturates Screen Ur Phencyclidine Scrn Ur Amphetamines Screen U Benzodiazepines Scrn Urine Cocaine Screen U Marijuana (THC) Screen Ethyl Alcohol 11/11/23 11/12/23 13:31 13:20 WBC 9.9 RBC 4.69 Hgb 16.2 Hct 45.9 MCV 97.9 MCH 34.5 H MCHC 35.3 RDW 12.5 Plt Count 207 MPV 9.3 L Immature Gran % (Auto) 0.4 Neut % (Auto) 78.0 H Lymph % (Auto) 10.3 L Ritchie % (Auto) 10.4 Eos % (Auto) 0.6 Baso % (Auto) 0.3 Lymph # (Auto) 1.0 L Ritchie # (Auto) 1.0 Eos # (Auto) 0.1 Baso # (Auto) 0.0 Abs Immat Gran (auto) 0.04 H Absolute Neuts (auto) 7.7 Absolute Nucleated RBC 0.000 Nucleated RBC % (auto) 0.0 ESR PT INR VBG pH VBG pCO2 VBG pO2 VBG HCO3 VBG O2 Saturation VBG Base Excess Sodium 141 140 Potassium 4.2 4.5 Chloride 108 108 Carbon Dioxide 19 L 19 L Anion Gap 18 18 BUN 21 H 22 H Creatinine 0.81 0.76 Estim Creat Clear Calc 77.5 82.6 Estimated GFR > 60 > 60 POC Glucose Random Glucose 104 116 H Calcium 9.8 9.5 Magnesium 2.2 Total Bilirubin 1.7 H Direct Bilirubin 0.5 AST 25 ALT 45 H Alkaline Phosphatase 55 Ammonia 25 Troponin I High Sens C-Reactive Protein 0.11 B-Natriuretic Peptide Total Protein 7.5 Albumin 4.3 Lipase TSH 1.74 Urine Color Urine Appearance Urine pH Ur Specific Prichard Urine Protein Urine Glucose (UA) Urine Ketones Urine Blood Urine Nitrite Ur Leukocyte Esterase Urine RBC Urine WBC Ur Squamous Epith Cells Urine Bacteria Hyaline Casts Salicylates Urine Opiates Screen Ur Buprenorphine Scrn Ur Oxycodone Screen Urine Methadone Screen Urine Fentanyl Screen Acetaminophen Ur Barbiturates Screen Ur Phencyclidine Scrn Ur Amphetamines Screen U Benzodiazepines Scrn Urine Cocaine Screen U Marijuana (THC) Screen Ethyl Alcohol Imaging Radiology Impressions: ITS Impressions Chest X-Ray 11/10/23 20:04 IMPRESSION: No active cardiopulmonary disease. Cervical Spine CT 11/10/23 20:16 IMPRESSION: 1. No acute intracranial pathology. 2. Chronic white matter small vessel ischemic changes. EXAMINATION: Noncontrast CT scan of the cervical spine. INDICATION: Altered mental status COMPARISON: None. TECHNIQUE: Helical, multidetector axial images were obtained from the occiput to the upper thorax. Coronal and sagittal reformats of the cervical spine were provided for interpretation. DLP: 434.45 mGy-cm FINDINGS: No acute fractures or dislocations of the cervical spine are seen. Straightening the normal cervical curvature. Multilevel degenerative changes. Anatomic alignment and positioning of the vertebral bodies and posterior elements is noted. The atlantoaxial joint and craniovertebral articulations are normal without evidence of subluxation. There is no prevertebral soft tissue swelling. Calcified nodules of the bilateral thyroid lobes largest measuring up to 1.1 cm. Based on the recommendations of the ACR Incidental Thyroid Findings Committee (JACR 2015 Jul; 12(2):143-50), no imaging followup is recommended for incidental thyroid nodules with largest axial dimension less than 1.5 cm in patients greater than 35 years of age in the absence of high risk imaging features, symptomatic thyroid disease, or increased risk for thyroid cancer. Visualized portions of the lungs are unremarkable. IMPRESSION: 1. No acute visible fracture or dislocation. 2. Straightening the normal cervical curvature. 3. Multilevel degenerative changes. Head CT 11/10/23 20:16 IMPRESSION: 1. No acute intracranial pathology. 2. Chronic white matter small vessel ischemic changes. EXAMINATION: Noncontrast CT scan of the cervical spine. INDICATION: Altered mental status COMPARISON: None. TECHNIQUE: Helical, multidetector axial images were obtained from the occiput to the upper thorax. Coronal and sagittal reformats of the cervical spine were provided for interpretation. DLP: 434.45 mGy-cm FINDINGS: No acute fractures or dislocations of the cervical spine are seen. Straightening the normal cervical curvature. Multilevel degenerative changes. Anatomic alignment and positioning of the vertebral bodies and posterior elements is noted. The atlantoaxial joint and craniovertebral articulations are normal without evidence of subluxation. There is no prevertebral soft tissue swelling. Calcified nodules of the bilateral thyroid lobes largest measuring up to 1.1 cm. Based on the recommendations of the ACR Incidental Thyroid Findings Committee (JACR 2014; 12(2):143-50), no imaging followup is recommended for incidental thyroid nodules with largest axial dimension less than 1.5 cm in patients greater than 35 years of age in the absence of high risk imaging features, symptomatic thyroid disease, or increased risk for thyroid cancer. Visualized portions of the lungs are unremarkable. IMPRESSION: 1. No acute visible fracture or dislocation. 2. Straightening the normal cervical curvature. 3. Multilevel degenerative changes. Mental Status Exam Mental Status Exam Narrative: Pt is lying in bed. IN NAD He is cooperative No agitation or retardation noted Speech: clear, normal rate/rhythm, moderately spontaneous TP: answer single words, mostly yes or no or don't remember TC: no particular theme of conversation as content related to his answers with single word answers Mood: okay Affect: no distress Insight/judgment: impaired x 2. alert, not oriented to place, month, year, date or situtation. Medications Medications Current Medications Acetaminophen (Acetaminophen 325 Mg Tablet) 650 mg PO Q6H PRN PRN Reason: Pain, Mild (1-3), h/a, fever Atorvastatin Calcium (Atorvastatin Calcium 10 Mg Tablet) 10 mg PO DAILY [facility] Enoxaparin Sodium (Enoxaparin Sodium 40 Mg/0.4 Ml Syringe) 40 mg SUBCUT Q24H [facility] Last Admin: 11/12/23 13:18 Dose: 40 mg Glucose (Glucose Gel 15 Gm Gel..Gram.) 15 gm PO Q15M PRN; Protocol PRN Reason: per Hypoglycemia Standing Ord. Dextrose (D10) 250 mls @ 750 mls/hr IV Q15M PRN; Protocol PRN Reason: per Hypoglycemia Standing Ord. Insulin Human Lispro (Insulin Lispro 100 Unit/Ml 3 Ml Vial) 0 unit SUBCUT QIDACHS [facility]; Protocol Lisinopril (Lisinopril 20 Mg Tablet) 20 mg PO DAILY [facility]; Protocol Last Admin: 11/12/23 13:17 Dose: 20 mg Magnesium Hydroxide (Milk Of Magnesia 30 Ml Oral.Susp) 30 ml PO DAILY PRN PRN Reason: Constipation Ondansetron HCl (Ondansetron Hcl 4 Mg/2 Ml Vial) 4 mg IVPUSH Q8H PRN PRN Reason: Nausea and Vomiting Sodium Chloride (0.9 % Sodium Chloride Flush 3 Ml Syringe) 3 ml IVFLUSH QSHIFT [facility] Allergies Allergies Allergy/AdvReac Type Severity Reaction Status Date / Time Penicillins Allergy Rash Verified 11/10/23 20:01 Assessment & Plan Assessment & Plan (1) Anterograde amnesia: Status: Acute Code(s): R41.1 - Anterograde amnesia Plan Mr. Gar is a 78 year-old male who was brought via EMS after being found by police after family placed silver alert, as pt left the home at around 11am in the morning and did not return. In the ED, pt not oriented to place, situation, can't remember much about his autobiographical information, severe anterograde amnesia. Other cognitive functions appears fairly intact including attention, somewhat organized thought process although answers are limited to single word, mostly to report he does not remember or does not know. He does not seem to have awareness of episodic and autobiographical memory. ON exam- as soon as one hold his arms he lets it go. no rigidity, no waxy flexibility. This poem writer did not assess his gait. But pt able to lift upper extremities and lower extremities when asked. PLAN 1. consider consult to neurology. Total time managing care of this patient today ____ minutes.
[2023-11-12 14:25] LABS: Folate 11.7 ng/mL (> or = 4.0)
[2023-11-12 14:34] LABS: Vitamin B12 152 pg/mL (200-900)
--- NOTE | 2023-11-12 14:56 | P.CNNE_ITS ---
History of Present Illness Data of Consult Service Date: 11/12/23 Primary Care Provider: Unknown Physician HPI Reason for consult: Encephalopathy 78 years old man who probably has underlying hypertension was [place] by police on the highway when his car ran out of gas and he was noted to be confused with new up obvious explanation or understanding of what was going on. He was brought to emergency room at and was noted to be confused and amnestic. No obvious convulsion was noted. No obvious medical etiology other than high blood pressure was noted. Review of Systems 2 Review of Systems: Probably no recent cold or flu-like illness or trauma [facility] Past Medical History Medical History HLD (hyperlipidemia) HTN (hypertension) Type 2 diabetes mellitus Social History Social History Household Members: Spouse Housing: House Do you presently have visiting nurse or other home services: No Patient Tobacco Use Status: Never used Tobacco Smoked in Last 30 Days: No Use of substances other than those prescribed or required for medical reasons: No Currently Displaying Signs/Symptoms of Drug Intoxication Withdrawal: No Do you feel safe in your current relationship?: Yes Advance Directives: No Advance Directives Information Provided: No Do you have a plan to hurt others: No Plan Recently lost weight without trying: Unsure Meds Allergies Allergy/AdvReac Type Severity Reaction Status Date / Time Penicillins Allergy Rash Verified 11/10/23 20:01 Active Medications: Current Medications Acetaminophen (Acetaminophen 325 Mg Tablet) 650 mg PO Q6H PRN PRN Reason: Pain, Mild (1-3), h/a, fever Atorvastatin Calcium (Atorvastatin Calcium 10 Mg Tablet) 10 mg PO DAILY [facility] Enoxaparin Sodium (Enoxaparin Sodium 40 Mg/0.4 Ml Syringe) 40 mg SUBCUT Q24H [facility] Last Admin: 11/12/23 13:18 Dose: 40 mg Glucose (Glucose Gel 15 Gm Gel..Gram.) 15 gm PO Q15M PRN; Protocol PRN Reason: per Hypoglycemia Standing Ord. Dextrose (D10) 250 mls @ 750 mls/hr IV Q15M PRN; Protocol PRN Reason: per Hypoglycemia Standing Ord. Insulin Human Lispro (Insulin Lispro 100 Unit/Ml 3 Ml Vial) 0 unit SUBCUT QIDACHS [facility]; Protocol Lisinopril (Lisinopril 20 Mg Tablet) 20 mg PO DAILY [facility]; Protocol Last Admin: 11/12/23 13:17 Dose: 20 mg Magnesium Hydroxide (Milk Of Magnesia 30 Ml Oral.Susp) 30 ml PO DAILY PRN PRN Reason: Constipation Ondansetron HCl (Ondansetron Hcl 4 Mg/2 Ml Vial) 4 mg IVPUSH Q8H PRN PRN Reason: Nausea and Vomiting Sodium Chloride (0.9 % Sodium Chloride Flush 3 Ml Syringe) 3 ml IVFLUSH QSHIFT [facility] Home Medications ?Medication ?Instructions ?Recorded ?Confirmed ?Last Taken ?Type buspirone 7.5 mg tablet 7.5 mg PO BID 11/12/23 11/12/23 Unknown History linagliptin 5 mg tablet (Tradjenta) 5 mg PO DAILY 11/12/23 11/12/23 11/10/23 06:00 History lisinopril 20 mg tablet 20 mg PO DAILY 11/12/23 11/12/23 11/10/23 06:00 History simvastatin 20 mg tablet 20 mg PO BEDTIME 11/12/23 11/12/23 11/09/23 19:00 History Physical Exam 2 Vital Signs: Vital Signs: Last Vital Signs Temp 97.6 F 11/12/23 03:52 Pulse 78 11/12/23 03:52 Resp 17 11/12/23 03:52 BP 150/74 H 11/12/23 03:52 Pulse Ox 98 11/12/23 03:52 O2 Del Method Room Air 11/12/23 03:52 BMI result Body Mass Index 27.4 Neuro: Other: He is alert and awake somewhat anxious looking around made eye contact with normal spontaneity of speech fluency comprehension and anxious affect. Face is symmetrical. Visual boss are full. Speech is normal. He is able to comprehend and follow commands. His short-term memory was intact. He knew he was in [facility] but could not tell me what he had for breakfast. There was no pronator drift. No significant tremor was noted. Deep tendon reflexes were trace to absent with flexor plantars. Results Labs 11/12/23 13:20 11/12/23 13:20 Labs: Short CBC 11/12/23 Range/Units 13:20 WBC 9.9 (4.8-10.8) X10*3/uL Hgb 16.2 (14.0-18.0) g/dl Hct 45.9 (42.0-52.0) % Plt Count 207 (160-400) X10*3/uL [facility] 11/12/23 13:20 Sodium 140 Potassium 4.5 Chloride 108 Carbon Dioxide 19 L BUN 22 H Creatinine 0.76 Calcium 9[address] revealed [id number] cerebellar atrophy and mild cerebral atrophy. Assessment and Plan (1) Encephalopathy: Status: Acute 78 years old man with acute encephalopathy with unknown detailed past medical history other than the fact that he might have been hypertensive. His B12 level is low but that would not explain his situation. The might be underlying history of alcohol abuse as there is some cerebellar atrophy on his scan. My recommendation is to obtain a noncontrast MRI of brain and an EEG. B12 injection is recommended 1 g intramuscular every week x3. I would also give him thiamine and folate without knowing his detail underlying history. Lyme test is also recommended. Depending upon these tests, we might also have to do a lumbar puncture. Procedures Date of Service Date of Service: 11/12/23
[2023-11-12 15:01] VITALS: BMI 24.0
--- NOTE | 2023-11-12 15:04 | PC.NURSE ---
Addendum entered by Qian Carpio RN 11/12/23 15:47: Per Concepción Wallace site is noted to be lipoma. Addendum entered by Qian Carpio RN 11/12/23 15:40: MERRITT Wallace made aware pt has large lump on left side of neck, skin intact. Now new orders at this time. Original Note: Pt arrived to unit at 14:53, at this time pt is alert to person/place, states he is at [facility] , Pt is unsure of time and situation. Pt is able to follow simple commands as this time. LS clear, abd soft non-tender, +BS all 4 quads, no edema noted, and skin intact. All safety measures in place.
[2023-11-12 15:45] VITALS: BP 175/82; PULSE 83; RESP 20; TEMP 36.6; O2SAT 98
[2023-11-12 15:47] VITALS: BP 175/82; PULSE 83; O2SAT 98
[2023-11-12] MEDS: Folic Acid 1 MG TABLET PO (16:06)
[2023-11-12] MEDS: Cyanocobalamin (Vitamin B-12) 1,000 MCG/ML VIAL 1000 MCG IM (16:06)
[2023-11-12] MEDS: Thiamine HCL 100 MG TABLET PO (16:07)
[2023-11-12] MEDS: 0.9 % Sodium Chloride Flush 3 ML SYRINGE IVFLUSH ×2 (16:07→21:32)
[2023-11-12 16:14] LABS: Glucose, Whole Blood 210 mg/dL (60-115)
[2023-11-12] MEDS: Insulin Lispro 100 UNIT/ML 3 ML VIAL SUBCUT (16:38)
[2023-11-12 16:44] VITALS: BP 164/89; PULSE 92
[2023-11-12 19:35] VITALS: BP 155/82; PULSE 80; RESP 18; TEMP 36.7; O2SAT 95
[2023-11-12 20:18] LABS: Glucose, Whole Blood 146 mg/dL (60-115)
[2023-11-13 03:13] VITALS: BP 150/73; PULSE 70; RESP 18; TEMP 36.4; O2SAT 98
[2023-11-13 05:54] LABS: MANUAL DIFF FLAG NO
[2023-11-13 06:22] LABS: Anion Gap 14 (12-20); Blood Urea Nitrogen 25 mg/dL (9-16); Calcium 9.5 mg/dL (8.4-10.2); Carbon Dioxide 22 mmol/L (22-29); Chloride 108 mmol/L (96-108); Creatinine Clr Calc Pharmacy 77.5; Estimated Glomerular Filt Rate > 60; Glucose Random 137 mg/dL (60-115); Potassium 3.6 mmol/L (3.3-5.1); Sodium 140 mmol/L (135-145)
[2023-11-13 06:27] LABS: Basophils Absolute Auto 0.1 X10*3/uL (0.0-0.2); Basophils Percent Auto 0.6 % (0-2); Eosinophils Absolute Auto 0.2 X10*3/uL (0.0-0.4); Eosinophils Percent Auto 1.8 % (0-4); Hematocrit 45.3 % (42.0-52.0); Hemoglobin 16.4 g/dl (14.0-18.0); Imm Gran Abs Auto 0.04 X10*3/uL (0.00-0.03); Imm Gran Pct Auto 0.4 % (0.0-0.4); Lymphocytes Absolute Auto 1.4 X10*3/uL (1.2-4.9); Lymphocytes Percent Auto 15.2 % (20-40); Mean Corpuscular HGB Conc 36.2 g/dl (31.0-36.0); Mean Corpuscular Volume 96.8 fL (80.0-98.0); Mean Platelet Volume 9.7 fL (9.4-12.4); Monocytes Absolute Auto 1.5 X10*3/uL (0.1-1.2); Monocytes Percent Auto 16.1 % (2-11); Neutrophils Percent Auto 65.9 % (45-73); Platelet Count 234 X10*3/uL (160-400); Red Blood Count 4.68 X10*6/uL (4.60-5.80); Red Cell Distribution Width 12.5 % (11.0-16.0)
[2023-11-13 07:11] VITALS: BP 154/86; PULSE 75; RESP 16; TEMP 36.7; O2SAT 98
[2023-11-13 07:16] LABS: Glucose, Whole Blood 122 mg/dL (60-115)
[2023-11-13] MEDS: 0.9 % Sodium Chloride Flush 3 ML SYRINGE IVFLUSH ×3 (07:26→20:24)
[2023-11-13 07:33] VITALS: BP 154/86
[2023-11-13] MEDS: lisinopriL 20 MG TABLET PO (07:33)
[2023-11-13] MEDS: Thiamine HCL 100 MG TABLET PO (07:33)
[2023-11-13] MEDS: Atorvastatin Calcium 10 MG TABLET PO (07:33)
[2023-11-13] MEDS: Folic Acid 1 MG TABLET PO (07:33)
--- NOTE | 2023-11-13 07:42 | PC.NURSE ---
Patient difficult to arouse at first,than opened his eyes ,smiled at nurse,took his am meds,swallowed without difficulty
[2023-11-13 07:45] LABS: Syphilis Screen Nonreactive (Nonreactive)
[2023-11-13 11:39] LABS: Glucose, Whole Blood 239 mg/dL (60-115)
[2023-11-13] MEDS: Enoxaparin Sodium 40 MG/0.4 ML SYRINGE SUBCUT (11:53)
[2023-11-13] MEDS: Insulin Lispro 100 UNIT/ML 3 ML VIAL SUBCUT ×3 (11:53→20:21)
[2023-11-13 15:01] VITALS: BP 125/75; PULSE 81; RESP 16; TEMP 36.5; O2SAT 97
--- NOTE | 2023-11-13 15:21 | MHC.CM.PN ---
PER DIEM completed w/ patient's , Kasandra Gar @ [phone]. IMM verbally delivered. Copy left at bedside. Patient lives in [place], [place] with . 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 [employer] patient functionally independent. Found on the side of the road, confused and unsure why he was in this area. Remains confused, oriented to self and knows he is in the hospital. However, reports to CM that he lives w/ his mother, who is actually . PCP Lito Doherty MD in [place] Per patient does not have an HCP. CM called PCP office and pts local [facility]. Neither have an HCP on file. DP: Pending further workup. PT recommending STR. CM will continue to follow and place referrals for STR when mental status improved and able to complete HCP.
[2023-11-13 16:09] LABS: Glucose, Whole Blood 164 mg/dL (60-115)
[2023-11-13] MEDS: levETIRAcetam 500 MG TABLET PO (17:17)
--- NOTE | 2023-11-13 18:16 | P.PNIM_ITS ---
Subjective Subjective Date of Service: 11/13/23 Interval History: amnesia Review of Systems Mental status seems to be improving EEG pending Physical Exam 2 Vital Signs: Vital Signs: Last Vital Signs Temp 97.7 F 11/13/23 15:01 Pulse 81 11/13/23 15:01 Resp 16 11/13/23 15:01 BP 125/75 11/13/23 15:01 Pulse Ox 97 11/13/23 15:01 O2 Del Method Room Air 11/13/23 15:01 BMI result Body Mass Index 24.0 Appearance: Alert.? Oriented X2, follows simple commands.? cvs: [id number], [id number] . res: clear to auscultation ,no rhonchii or wheezing abd: no rebound or guarding ,nt, bs present. ext pulses present , no cyanosis . neuro: axo3 , nonfocal. Objective Data Active Medications Acetaminophen (Acetaminophen 325 Mg Tablet) 650 mg PO Q6H PRN PRN Reason: Pain, Mild (1-3), h/a, fever Atorvastatin Calcium (Atorvastatin Calcium 10 Mg Tablet) 10 mg PO DAILY [facility] Last Admin: 11/13/23 07:33 Dose: 10 mg Documented By: DELVIN Cyanocobalamin (Cyanocobalamin (Vitamin B-12) 1,000 Mcg/Ml Vial) 1,000 mcg IM Q21D [facility] Last Admin: 11/12/23 16:06 Dose: 1,000 mcg Documented By: IRMA Enoxaparin Sodium (Enoxaparin Sodium 40 Mg/0.4 Ml Syringe) 40 mg SUBCUT Q24H [facility] Last Admin: 11/13/23 11:53 Dose: 40 mg Documented By: DELVIN Folic Acid (Folic Acid 1 Mg Tablet) 1 mg PO DAILY [facility] Last Admin: 11/13/23 07:33 Dose: 1 mg Documented By: DELVIN Glucose (Glucose Gel 15 Gm Gel..Gram.) 15 gm PO Q15M PRN; Protocol PRN Reason: per Hypoglycemia Standing Ord. Dextrose (D10) 250 mls @ 750 mls/hr IV Q15M PRN; Protocol PRN Reason: per Hypoglycemia Standing Ord. Insulin Human Lispro (Insulin Lispro 100 Unit/Ml 3 Ml Vial) 0 unit SUBCUT QIDACHS [facility]; Protocol Last Admin: 11/13/23 17:16 Dose: 2 unit Documented By: DELVIN Levetiracetam (Levetiracetam 500 Mg Tablet) 500 mg PO BID [facility] Last Admin: 11/13/23 17:17 Dose: 500 mg Documented By: DELVIN Lisinopril (Lisinopril 20 Mg Tablet) 20 mg PO DAILY [facility]; Protocol Last Admin: 11/13/23 07:33 Dose: 20 mg Documented By: DELVIN Magnesium Hydroxide (Milk Of Magnesia 30 Ml Oral.Susp) 30 ml PO DAILY PRN PRN Reason: Constipation Ondansetron HCl (Ondansetron Hcl 4 Mg/2 Ml Vial) 4 mg IVPUSH Q8H PRN PRN Reason: Nausea and Vomiting Sodium Chloride (0.9 % Sodium Chloride Flush 3 Ml Syringe) 3 ml IVFLUSH QSHIFT [facility] Last Admin: 11/13/23 17:17 Dose: 3 ml Documented By: DELVIN Thiamine HCl (Thiamine Hcl 100 Mg Tablet) 100 mg PO DAILY [facility] Last Admin: 11/13/23 07:33 Dose: 100 mg Documented By: DELVIN Labs 11/13/23 05:28 11/13/23 05:28 Labs: Laboratory Results - last 24 hr 11/12/23 11/12/23 11/13/23 15:58 20:08 05:28 MCV 96.8 MCH 35.0 H MCHC 36.2 H RDW 12.5 Plt Count 234 MPV 9.7 Immature Gran % (Auto) 0.4 Neut % (Auto) 65.9 Lymph % (Auto) 15.2 L Davison % (Auto) 16.1 H Eos % (Auto) 1.8 Baso % (Auto) 0.6 Lymph # (Auto) 1.4 Davison # (Auto) 1.5 H Eos # (Auto) 0.2 Baso # (Auto) 0.1 Abs Immat Gran (auto) 0.04 H Absolute Neuts (auto) 6.0 Absolute Nucleated RBC 0.000 Nucleated RBC % (auto) 0.0 Anion Gap 14 Estim Creat Clear Calc 77.5 Estimated GFR > 60 POC Glucose 146 H Random Glucose 137 H Calcium 9.5 T.pallidum Ab (EIA) Nonreactive 11/13/23 11/13/23 11/13/23 07:09 11:34 16:05 MCV MCH MCHC RDW Plt Count MPV Immature Gran % (Auto) Neut % (Auto) Lymph % (Auto) Davison % (Auto) Eos % (Auto) Baso % (Auto) Lymph # (Auto) Davison # (Auto) Eos # (Auto) Baso # (Auto) Abs Immat Gran (auto) Absolute Neuts (auto) Absolute Nucleated RBC Nucleated RBC % (auto) Anion Gap Estim Creat Clear Calc Estimated GFR POC Glucose 122 H 239 H 164 H Random Glucose Calcium T.pallidum Ab (EIA) Assessment and Plan (1) Encephalopathy: Status: Acute Plan 78 year old male with history on non insulin dependent type 2 diabetes, hld, htn to be observed for global amnesia Global amnesia CT shows chronic microangiopathic but no acute intracranial abnormality or evidence of infarction mri negative No uremia, ammonia level normal. TSH normal, VBG reassuring without hypercapnia. Folic acid 11.7, vitamin B12 slightly low at 152. tick panel and lyme pcr ordered. Syphilis RPR ordered plan: Add vitamin b12 1000mg IM q21d per neuro. Add thiamine and folic acid given unknown history of etoh abuse eeg pending neurology consult noted. 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 -outpt follow up [id number] type 2 diabetes -POC glucose, diabetic diet -Humalog on sliding scale hypertension -resume lisinopril hyperlipidemia-statin DVT prophylaxis-Lovenox Full code ongoing hospitalization need: profound global amnesia: further investigation into etiology of symptoms including MRI, EEG, possible LP as well as expert consultation as patient cannot safely be discharged to continue investigation into etiology of symptoms Quality Stroke Does the patient have a stroke diagnosis?: No VTE Prior VTE?: No VTE Risk Level:: Medical - moderate - high VTE Device Contraindication: Treatment Not Indicated VTE Drug Contraindication: N/A - Med Ordered
[2023-11-13 18:18] LABS: Lyme Abs Screen <0.90 index
[2023-11-13 19:31] VITALS: BP 145/89; PULSE 74; RESP 16; TEMP 36.1; O2SAT 96
[2023-11-13 20:13] LABS: Glucose, Whole Blood 182 mg/dL (60-115)
[2023-11-13 23:13] LABS: A. Phagocytphilium DNA,RT-PCR NOT DETECTED (NOT DETECTED); Babesia Microti DNA, RT-PCR NOT DETECTED (NOT DETECTED); Borrelia Miyamotoi,DNA RT-PCR NOT DETECTED (NOT DETECTED); E.Chaffeensis DNA RT-PCR NOT DETECTED (NOT DETECTED); Lyme(Borrelia ssp)DNA RT-PCR NOT DETECTED (NOT DETECTED)
[2023-11-14 04:00] VITALS: BP 120/63; PULSE 70; RESP 16; TEMP 36.5; O2SAT 96
[2023-11-14 07:45] LABS: Glucose, Whole Blood 154 mg/dL (60-115)
[2023-11-14 07:46] VITALS: BP 133/67; PULSE 77; RESP 14; TEMP 36.3; O2SAT 95
[2023-11-14] MEDS: Thiamine HCL 100 MG TABLET PO (09:29)
[2023-11-14] MEDS: Folic Acid 1 MG TABLET PO (09:29)
[2023-11-14] MEDS: Atorvastatin Calcium 10 MG TABLET PO (09:29)
[2023-11-14] MEDS: lisinopriL 20 MG TABLET PO (09:29)
[2023-11-14] MEDS: levETIRAcetam 500 MG TABLET PO ×2 (09:29→20:22)
[2023-11-14] MEDS: 0.9 % Sodium Chloride Flush 3 ML SYRINGE IVFLUSH ×2 (09:29→20:22)
[2023-11-14 11:59] LABS: Glucose, Whole Blood 158 mg/dL (60-115)
--- NOTE | 2023-11-14 12:01 | MHC.CM.PN ---
EMR reviewed. Per MD rounds patient not medically cleared for dc. CM attempted to meet with patient to discuss HCP. Patient remains confused. Alert, but not verbally responding to questions. When asked if patient knows his name or where he is, he shakes his head no. CM will continue to follow.
--- NOTE | 2023-11-14 13:21 | P.PNIM_ITS ---
Subjective Subjective Date of Service: 11/14/23 Interval History: amnesia Review of Systems Mental status seems to be improving Denies any chest pain or shortness breath or abd pain Physical Exam 2 Vital Signs: Vital Signs: Last Vital Signs Temp 97.4 F 11/14/23 07:46 Pulse 77 11/14/23 07:46 Resp 14 11/14/23 07:46 BP 133/67 11/14/23 07:46 Pulse Ox 95 11/14/23 07:46 O2 Del Method Room Air 11/14/23 07:46 BMI result Body Mass Index 24.0 Appearance: Alert.? Oriented X2, follows simple commands.? cvs: [id number], [id number] . res: clear to auscultation ,no rhonchii or wheezing abd: no rebound or guarding ,nt, bs present. ext pulses present , no cyanosis . neuro: axo3 , nonfocal. Objective Data Active Medications Acetaminophen (Acetaminophen 325 Mg Tablet) 650 mg PO Q6H PRN PRN Reason: Pain, Mild (1-3), h/a, fever Atorvastatin Calcium (Atorvastatin Calcium 10 Mg Tablet) 10 mg PO DAILY [facility] Last Admin: 11/14/23 09:29 Dose: 10 mg Documented By: KIRA Cyanocobalamin (Cyanocobalamin (Vitamin B-12) 1,000 Mcg/Ml Vial) 1,000 mcg IM Q21D [facility] Last Admin: 11/12/23 16:06 Dose: 1,000 mcg Documented By: IRMA Enoxaparin Sodium (Enoxaparin Sodium 40 Mg/0.4 Ml Syringe) 40 mg SUBCUT Q24H [facility] Last Admin: 11/13/23 11:53 Dose: 40 mg Documented By: DELVIN Folic Acid (Folic Acid 1 Mg Tablet) 1 mg PO DAILY [facility] Last Admin: 11/14/23 09:29 Dose: 1 mg Documented By: KIRA Glucose (Glucose Gel 15 Gm Gel..Gram.) 15 gm PO Q15M PRN; Protocol PRN Reason: per Hypoglycemia Standing Ord. Dextrose (D10) 250 mls @ 750 mls/hr IV Q15M PRN; Protocol PRN Reason: per Hypoglycemia Standing Ord. Insulin Human Lispro (Insulin Lispro 100 Unit/Ml 3 Ml Vial) 0 unit SUBCUT QIDACHS [facility]; Protocol Last Admin: 11/14/23 12:18 Dose: Not Given Documented By: KIRA Non-Admin Reason: patient not eating Levetiracetam (Levetiracetam 500 Mg Tablet) 500 mg PO BID [facility] Last Admin: 11/14/23 09:29 Dose: 500 mg Documented By: KIRA Lisinopril (Lisinopril 20 Mg Tablet) 20 mg PO DAILY [facility]; Protocol Last Admin: 11/14/23 09:29 Dose: 20 mg Documented By: KIRA Magnesium Hydroxide (Milk Of Magnesia 30 Ml Oral.Susp) 30 ml PO DAILY PRN PRN Reason: Constipation Ondansetron HCl (Ondansetron Hcl 4 Mg/2 Ml Vial) 4 mg IVPUSH Q8H PRN PRN Reason: Nausea and Vomiting Sodium Chloride (0.9 % Sodium Chloride Flush 3 Ml Syringe) 3 ml IVFLUSH QSHIFT [facility] Last Admin: 11/14/23 09:29 Dose: 3 ml Documented By: KIRA Thiamine HCl (Thiamine Hcl 100 Mg Tablet) 100 mg PO DAILY [facility] Last Admin: 11/14/23 09:29 Dose: 100 mg Documented By: KIRA Labs 11/13/23 05:28 11/13/23 05:28 Labs: Laboratory Results - last 24 hr 11/12/23 11/13/23 11/13/23 15:59 16:05 20:09 POC Glucose 164 H 182 H A.phagocytophil DNA PCR NOT DETECTED Babesia microti DNA PCR NOT DETECTED Borrelia sp DNA (PCR) NOT DETECTED Lyme Screen IgG & IgM <0.90 Lyme Progressive Test TNP Borrelia miyamotoi (PCR) NOT DETECTED E.chaffeensis DNA (PCR) NOT DETECTED Tick-borne Disease PCR SEE NOTE 11/14/23 11/14/23 07:38 11:54 POC Glucose 154 H 158 H A.phagocytophil DNA PCR Babesia microti DNA PCR Borrelia sp DNA (PCR) Lyme Screen IgG & IgM Lyme Progressive Test Borrelia miyamotoi (PCR) E.chaffeensis DNA (PCR) Tick-borne Disease PCR Assessment and Plan (1) Encephalopathy: Status: Acute Plan 78 year old male with history on non insulin dependent type 2 diabetes, hld, htn to be observed for global amnesia Global amnesia CT shows chronic microangiopathic but no acute intracranial abnormality or evidence of infarction mri negative No uremia, ammonia level normal. TSH normal, VBG reassuring without hypercapnia. Folic acid 11.7, vitamin B12 slightly low at 152. tick panel and lyme pcr ordered. Syphilis RPR ordered plan: Add vitamin b12 1000mg IM daily. Add thiamine and folic acid given unknown history of etoh abuse eeg noted-added keppra. neurology consult noted. Vitamin B12 deficiency -level 152, unlikely to be directly related to patient's symptoms per neuro -add 1g vitamin b12 IM daily. 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 -outpt follow up [id number] type 2 diabetes -POC glucose, diabetic diet -Humalog on sliding scale hypertension -resume lisinopril hyperlipidemia-statin DVT prophylaxis-Lovenox Full code ongoing hospitalization need: profound global amnesia: mental status improving,need neurofollowup,possible LP as well as expert consultation as patient cannot safely be discharged to continue investigation into etiology of symptoms Quality Stroke Does the patient have a stroke diagnosis?: No VTE Prior VTE?: No VTE Risk Level:: Medical - moderate - high VTE Device Contraindication: Treatment Not Indicated VTE Drug Contraindication: N/A - Med Ordered
[2023-11-14] MEDS: Enoxaparin Sodium 40 MG/0.4 ML SYRINGE SUBCUT (13:38)
[2023-11-14] MEDS: Multivitamin TABLET 1 TAB PO (13:38)
[2023-11-14] MEDS: Cyanocobalamin (Vitamin B-12) 1,000 MCG/ML VIAL 1000 MCG IM (13:39)
[2023-11-14 16:15] LABS: Glucose, Whole Blood 144 mg/dL (60-115)
[2023-11-14 16:30] VITALS: BP 149/85; PULSE 85; RESP 18; TEMP 36.4; O2SAT 95
--- NOTE | 2023-11-14 18:25 | PC.NURSE ---
Patient's daughter, Fallon Fu, phone number [phone]
[2023-11-14 19:59] VITALS: BP 134/84; PULSE 101; RESP 20; TEMP 36.6; O2SAT 95
[2023-11-14 20:42] LABS: Glucose, Whole Blood 225 mg/dL (60-115)
[2023-11-14] MEDS: Insulin Lispro 100 UNIT/ML 3 ML VIAL SUBCUT (21:01)
[2023-11-15 03:30] VITALS: BP 139/80; PULSE 87; RESP 20; TEMP 36.6; O2SAT 97
[2023-11-15 07:21] VITALS: BP 130/79; PULSE 71; RESP 18; TEMP 36.1; O2SAT 97
[2023-11-15 07:40] LABS: Glucose, Whole Blood 125 mg/dL (60-115)
[2023-11-15] MEDS: Thiamine HCL 100 MG TABLET PO (08:32)
[2023-11-15 08:33] VITALS: BP 130/79
[2023-11-15] MEDS: Multivitamin TABLET 1 TAB PO (08:33)
[2023-11-15] MEDS: Folic Acid 1 MG TABLET PO (08:33)
[2023-11-15] MEDS: lisinopriL 20 MG TABLET PO (08:33)
[2023-11-15] MEDS: levETIRAcetam 500 MG TABLET PO ×2 (08:33→20:13)
[2023-11-15] MEDS: Cyanocobalamin (Vitamin B-12) 1,000 MCG/ML VIAL 1000 MCG IM (08:33)
[2023-11-15] MEDS: Atorvastatin Calcium 10 MG TABLET PO (08:33)
[2023-11-15] MEDS: 0.9 % Sodium Chloride Flush 3 ML SYRINGE IVFLUSH ×2 (08:33→20:14)
[2023-11-15 11:22] LABS: Glucose, Whole Blood 259 mg/dL (60-115)
[2023-11-15] MEDS: Insulin Lispro 100 UNIT/ML 3 ML VIAL SUBCUT ×2 (11:54→20:13)
[2023-11-15] MEDS: Enoxaparin Sodium 40 MG/0.4 ML SYRINGE SUBCUT (11:54)
--- NOTE | 2023-11-15 15:42 | P.PNIM_ITS ---
Subjective Subjective Date of Service: 11/15/23 Interval History: amnesia Review of Systems Mental status seems to be improving Denies any chest pain or shortness breath or abd pain Physical Exam 2 Vital Signs: Vital Signs: Last Vital Signs Temp 97.0 F 11/15/23 07:21 Pulse 71 11/15/23 07:21 Resp 18 11/15/23 07:21 BP 130/79 11/15/23 08:33 Pulse Ox 97 11/15/23 07:21 O2 Del Method Room Air 11/15/23 07:21 BMI result Body Mass Index 24.0 Appearance: Alert.? Oriented X2, follows simple commands.? cvs: rrr, [id number] . res: clear to auscultation ,no rhonchii or wheezing abd: no rebound or guarding ,nt, bs present. ext pulses present , no cyanosis . neuro: axo3 , nonfocal. Objective Data Active Medications Acetaminophen (Acetaminophen 325 Mg Tablet) 650 mg PO Q6H PRN PRN Reason: Pain, Mild (1-3), h/a, fever Atorvastatin Calcium (Atorvastatin Calcium 10 Mg Tablet) 10 mg PO DAILY [facility] Last Admin: 11/15/23 08:33 Dose: 10 mg Documented By: GUME Cyanocobalamin (Cyanocobalamin (Vitamin B-12) 1,000 Mcg/Ml Vial) 1,000 mcg IM DAILY [facility] Last Admin: 11/15/23 08:33 Dose: 1,000 mcg Documented By: GUME Enoxaparin Sodium (Enoxaparin Sodium 40 Mg/0.4 Ml Syringe) 40 mg SUBCUT Q24H [facility] Last Admin: 11/15/23 11:54 Dose: 40 mg Documented By: GUME Folic Acid (Folic Acid 1 Mg Tablet) 1 mg PO DAILY [facility] Last Admin: 11/15/23 08:33 Dose: 1 mg Documented By: GUME Glucose (Glucose Gel 15 Gm Gel..Gram.) 15 gm PO Q15M PRN; Protocol PRN Reason: per Hypoglycemia Standing Ord. Dextrose (D10) 250 mls @ 750 mls/hr IV Q15M PRN; Protocol PRN Reason: per Hypoglycemia Standing Ord. Insulin Human Lispro (Insulin Lispro 100 Unit/Ml 3 Ml Vial) 0 unit SUBCUT QIDACHS [facility]; Protocol Last Admin: 11/15/23 11:54 Dose: 6 unit Documented By: GUME Levetiracetam (Levetiracetam 500 Mg Tablet) 500 mg PO BID [facility] Last Admin: 11/15/23 08:33 Dose: 500 mg Documented By: GUME Lisinopril (Lisinopril 20 Mg Tablet) 20 mg PO DAILY [facility]; Protocol Last Admin: 11/15/23 08:33 Dose: 20 mg Documented By: GUME Magnesium Hydroxide (Milk Of Magnesia 30 Ml Oral.Susp) 30 ml PO DAILY PRN PRN Reason: Constipation Multivitamins/Vitamin C (Multivitamin Tablet) 1 tab PO DAILY [facility] Last Admin: 11/15/23 08:33 Dose: 1 tab Documented By: GUME Ondansetron HCl (Ondansetron Hcl 4 Mg/2 Ml Vial) 4 mg IVPUSH Q8H PRN PRN Reason: Nausea and Vomiting Sodium Chloride (0.9 % Sodium Chloride Flush 3 Ml Syringe) 3 ml IVFLUSH QSHIFT [facility] Last Admin: 11/15/23 08:33 Dose: 3 ml Documented By: GUME Thiamine HCl (Thiamine Hcl 100 Mg Tablet) 100 mg PO DAILY [facility] Last Admin: 11/15/23 08:32 Dose: 100 mg Documented By: GUME Labs 11/13/23 05:28 11/13/23 05:28 Labs: Laboratory Results - last 24 hr 11/14/23 11/14/23 11/15/23 16:07 20:38 07:32 POC Glucose 144 H 225 H 125 H 11/15/23 11:16 POC Glucose 259 H Assessment and Plan (1) Encephalopathy: Status: Acute Plan 78 year old male with history on non insulin dependent type 2 diabetes, hld, htn to be observed for global amnesia Global amnesia CT shows chronic microangiopathic but no acute intracranial abnormality or evidence of infarction mri negative No uremia, ammonia level normal. TSH normal, VBG reassuring without hypercapnia. Folic acid 11.7, vitamin B12 slightly low at 152. tick panel and lyme pcr ordered. Syphilis RPR ordered plan: Add vitamin b12 1000mg IM daily. Add thiamine and folic acid given unknown history of etoh abuse eeg noted-added keppra. neurology consult noted. Vitamin B12 deficiency -level 152, unlikely to be directly related to patient's symptoms per neuro -add 1g vitamin b12 IM daily. 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 -outpt follow up [id number] type 2 diabetes -POC glucose, diabetic diet -Humalog on sliding scale hypertension -resume lisinopril hyperlipidemia-statin DVT prophylaxis-Lovenox Full code ongoing hospitalization need: profound global amnesia: mental status improving,need neurofollowup,possible LP as well as expert consultation as patient cannot safely be discharged to continue investigation into etiology of symptoms Quality Stroke Does the patient have a stroke diagnosis?: No VTE Prior VTE?: No VTE Risk Level:: Medical - moderate - high VTE Device Contraindication: Treatment Not Indicated VTE Drug Contraindication: N/A - Med Ordered
[2023-11-15 15:57] VITALS: BP 140/80; PULSE 67; RESP 16; TEMP 36.3; O2SAT 96
[2023-11-15 16:26] LABS: Glucose, Whole Blood 122 mg/dL (60-115)
[2023-11-15 19:39] VITALS: BP 143/88; PULSE 72; RESP 18; TEMP 36.8; O2SAT 96
[2023-11-15 20:03] LABS: Glucose, Whole Blood 185 mg/dL (60-115)
--- NOTE | 2023-11-16 | EEG_ITS ---
This is a 16 channel EEG with an EKG lead. The patient is reported drowsy during the tracing. Background EEG rhythm is low to medium amplitude, mixed theta, beta with no obvious asymmetry or paroxysmal tendency. No sharp wave spikes are noted. Cardiac lead does not reveal any significant abnormality. Photic stimulation does not produce any significant driving. Hyperventilation is not performed. IMPRESSION: Generalized slowing with no evidence of seizure disorder. MD UMAIR Hernandez/GEOVANNY / [phone]
[2023-11-16 03:43] VITALS: BP 135/78; PULSE 73; RESP 18; TEMP 36.1; O2SAT 97
[2023-11-16 07:31] VITALS: BP 137/76; PULSE 68; RESP 18; TEMP 36.1; O2SAT 95
[2023-11-16] MEDS: 0.9 % Sodium Chloride Flush 3 ML SYRINGE IVFLUSH ×2 (07:32→15:43)
[2023-11-16] MEDS: Multivitamin TABLET 1 TAB PO (07:33)
[2023-11-16] MEDS: Atorvastatin Calcium 10 MG TABLET PO (07:33)
[2023-11-16] MEDS: Cyanocobalamin (Vitamin B-12) 1,000 MCG/ML VIAL 1000 MCG IM (07:33)
[2023-11-16] MEDS: Thiamine HCL 100 MG TABLET PO (07:33)
[2023-11-16] MEDS: lisinopriL 20 MG TABLET PO (07:33)
[2023-11-16] MEDS: Folic Acid 1 MG TABLET PO (07:33)
[2023-11-16] MEDS: levETIRAcetam 500 MG TABLET PO ×2 (07:33→21:27)
[2023-11-16 07:39] LABS: Glucose, Whole Blood 149 mg/dL (60-115)
[2023-11-16 11:09] VITALS: BP 137/76; PULSE 68; O2SAT 95
[2023-11-16 11:12] LABS: Glucose, Whole Blood 218 mg/dL (60-115)
--- NOTE | 2023-11-16 12:15 | MHC.CM.PN ---
EMR reviewed. Per MD rounds patient not medically cleared for dc. CM attempted to meet with patient again for HCP and to discuss dc plan. Patient alert, but oriented x 0. Unable to answer any CM questions. CM will continue to follow.
--- NOTE | 2023-11-16 13:47 | PM.PROC ---
Brief Operative Note Date of procedure: 11/16/23 Pre-op diagnosis: Encephalopathy Post-op diagnosis: same Procedure: FL lumbar puncture L4-5, Opening pressure unable to be obtained. 8 cc clear csf removed. Very slow csf flow rate that would increase with any valsalva movements that suggests a central canal stenosis at a higher level or myelographic block. An MRI of the spine could be performed on a non-urgent basis to investigate this. Anesthesia: local
--- NOTE | 2023-11-16 14:08 | HO.PM.IMPN ---
Subjective Subjective Date of Service: 11/16/23 Interval History: amnesia Review of Systems Patient mental status looks somewhat worsening Denies any fever or chills or cough or phlegm. Physical Exam Vital Signs: Vital Signs: Last Vital Signs Temp 97.0 F 11/16/23 07:31 Pulse 68 11/16/23 11:09 Resp 18 11/16/23 07:31 BP 137/76 11/16/23 11:09 Pulse Ox 95 11/16/23 11:09 O2 Del Method Room Air 11/16/23 07:31 BMI result Body Mass Index 24.0 Appearance: Alert.? Oriented X2, somwhat more confused .? cvs: [id number], [id number] . res: clear to auscultation ,no rhonchii or wheezing abd: no rebound or guarding ,nt, bs present. ext pulses present , no cyanosis . neuro: axo3 , nonfocal. Objective Data Active Medications Acetaminophen (Acetaminophen 325 Mg Tablet) 650 mg PO Q6H PRN PRN Reason: Pain, Mild (1-3), h/a, fever Atorvastatin Calcium (Atorvastatin Calcium 10 Mg Tablet) 10 mg PO DAILY [facility] Last Admin: 11/16/23 07:33 Dose: 10 mg Documented By: MATT Cyanocobalamin (Cyanocobalamin (Vitamin B-12) 1,000 Mcg/Ml Vial) 1,000 mcg IM DAILY [facility] Last Admin: 11/16/23 07:33 Dose: 1,000 mcg Documented By: MATT Enoxaparin Sodium (Enoxaparin Sodium 40 Mg/0.4 Ml Syringe) 40 mg SUBCUT Q24H [facility] Last Admin: 11/16/23 08:20 Dose: Not Given Documented By: MATT Non-Admin Reason: Hold Per Folic Acid (Folic Acid 1 Mg Tablet) 1 mg PO DAILY [facility] Last Admin: 11/16/23 07:33 Dose: 1 mg Documented By: MATT Glucose (Glucose Gel 15 Gm Gel..Gram.) 15 gm PO Q15M PRN; Protocol PRN Reason: per Hypoglycemia Standing Ord. Dextrose (D10) 250 mls @ 750 mls/hr IV Q15M PRN; Protocol PRN Reason: per Hypoglycemia Standing Ord. Insulin Human Lispro (Insulin Lispro 100 Unit/Ml 3 Ml Vial) 0 unit SUBCUT QIDACHS [facility]; Protocol Last Admin: 11/16/23 11:36 Dose: Not Given Documented By: MATT Non-Admin Reason: NPO Levetiracetam (Levetiracetam 500 Mg Tablet) 500 mg PO BID [facility] Last Admin: 11/16/23 07:33 Dose: 500 mg Documented By: MATT Lisinopril (Lisinopril 20 Mg Tablet) 20 mg PO DAILY [facility]; Protocol Last Admin: 11/16/23 07:33 Dose: 20 mg Documented By: MATT Magnesium Hydroxide (Milk Of Magnesia 30 Ml Oral.Susp) 30 ml PO DAILY PRN PRN Reason: Constipation Multivitamins/Vitamin C (Multivitamin Tablet) 1 tab PO DAILY [facility] Last Admin: 11/16/23 07:33 Dose: 1 tab Documented By: MATT Ondansetron HCl (Ondansetron Hcl 4 Mg/2 Ml Vial) 4 mg IVPUSH Q8H PRN PRN Reason: Nausea and Vomiting Sodium Chloride (0.9 % Sodium Chloride Flush 3 Ml Syringe) 3 ml IVFLUSH QSHIFT [facility] Last Admin: 11/16/23 07:32 Dose: 3 ml Documented By: MATT Thiamine HCl (Thiamine Hcl 100 Mg Tablet) 100 mg PO DAILY [facility] Last Admin: 11/16/23 07:33 Dose: 100 mg Documented By: MATT Labs 11/13/23 05:28 11/13/23 05:28 Labs: Laboratory Results - last 24 hr 11/15/23 11/15/23 11/16/23 16:00 19:58 07:33 POC Glucose 122 H 185 H 149 H 11/16/23 11:07 POC Glucose 218 H Assessment and Plan (1) Encephalopathy: Status: Acute Plan 78 year old male with history on non insulin dependent type 2 diabetes, hld, htn to be observed for global amnesia amnesia /encephalopathy unclear etiology CT shows chronic microangiopathic but no acute intracranial abnormality or evidence of infarction mri negative No uremia, ammonia level normal. TSH normal, VBG reassuring without hypercapnia. Folic acid 11.7, vitamin B12 slightly low at 152. tick panel and lyme pcr negative. Syphilis RPR negative plan: continue vitamin b12 1000mg IM daily, thiamine and folic acid given unknown history of etoh abuse eeg noted-added keppra. neurology consult- added Lumbar puncture,labs,repeat eeg ,neurology followup. Vitamin B12 deficiency -level 152, unlikely to be directly related to patient's symptoms per neuro -add 1g vitamin b12 IM daily. 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 Discussed with patient daughter in detail and updated her. Quality Stroke Does the patient have a stroke diagnosis?: No VTE Prior VTE?: No VTE Risk Level:: Medical - moderate - high VTE Device Contraindication: Treatment Not Indicated VTE Drug Contraindication: N/A - Med Ordered
--- NOTE | 2023-11-16 14:13 | P.CDIM_ITS ---
PROVIDER RESPONSE TEXT: To clarify, the appropriate diagnosis supported by the clinical indicators: Other (explain): unclear eiology QUERY TEXT: PHYSICIAN'S DOCUMENTATION REQUEST Date of Query: 11/16/2023 01:51 PM EDT Patient Name: Nasir Gar Admit Date: 11/12/2023 Dear Myron Villagomez, A review of the medical record indicates additional documentation may be needed. Please review below and update the documentation accordingly. 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 Please use your independent medical judgment in providing your response. THIS QUERY IS PART OF THE PERMANENT MEDICAL RECORD
[2023-11-16 14:18] LABS: Appearance CSF CLEAR; CSF Monos 10 %; CSF Tube # 4; Color CSF COLORLESS; Lymphocytes CSF 90 %; Red Blood Cell CSF 1 MM*3; White Blood Cell CSF 4 MM*3
[2023-11-16 14:33] LABS: CSF Appearance Clear, Colorless; CSF Tube # 1
[2023-11-16 14:41] LABS: Glucose CSF 95 mg/dL; Total Protein CSF 92.4 mg/dL (15-45)
[2023-11-16 15:19] LABS: Cryptococcus neoformans/gattii Not Detected (Not Detect.); Enterovirus Not Detected (Not Detect.); Escherichia coli K1 Not Detected (Not Detect.); Haemophilus influenzae Not Detected (Not Detect.); Herpes simplex virus 1 Not Detected (Not Detect.); Herpes simplex virus 2 Not Detected (Not Detect.); Human herpesvirus 6 Not Detected (Not Detect.); Human parechovirus Not Detected (Not Detect.); Listeria monocytogenes Not Detected (Not Detect.); Neisseria meningitidis Not Detected (Not Detect.); Streptococcus agalactiae Not Detected (Not Detect.); Streptococcus pneumoniae Not Detected (Not Detect.); Varicella zoster virus Not Detected (Not Detect.)
[2023-11-16 15:49] VITALS: BP 157/86; PULSE 65; RESP 16; TEMP 36.1; O2SAT 100
[2023-11-16 15:53] LABS: Glucose, Whole Blood 160 mg/dL (60-115)
[2023-11-16] MEDS: Insulin Lispro 100 UNIT/ML 3 ML VIAL SUBCUT (16:29)
[2023-11-16] MEDS: predniSONE 20 MG TABLET 60 MG PO (17:49)
[2023-11-16 19:53] VITALS: BP 136/71; PULSE 75; RESP 16; TEMP 36.6; O2SAT 95
[2023-11-16 20:09] LABS: Glucose, Whole Blood 208 mg/dL (60-115)
[2023-11-16 22:08] LABS: Glucose, Whole Blood 257 mg/dL (60-115)
[2023-11-16 22:23] LABS: Hematocrit 47.3 % (42.0-52.0); Hemoglobin 17.7 g/dl (14.0-18.0); Mean Corpuscular HGB Conc 37.4 g/dl (31.0-36.0); Mean Corpuscular Hemoglobin 35.3 pg (27.0-33.0); Mean Corpuscular Volume 94.4 fL (80.0-98.0); Mean Platelet Volume 9.6 fL (9.4-12.4); Platelet Count 209 X10*3/uL (160-400); Red Blood Count 5.01 X10*6/uL (4.60-5.80); Red Cell Distribution Width 12.3 % (11.0-16.0)
[2023-11-16 22:35] LABS: Anion Gap 14 (12-20); Blood Urea Nitrogen 17 mg/dL (9-16); Calcium 9.1 mg/dL (8.4-10.2); Carbon Dioxide 22 mmol/L (22-29); Chloride 105 mmol/L (96-108); Creatinine Clr Calc Pharmacy 80.5; Estimated Glomerular Filt Rate > 60; Glucose Random 253 mg/dL (60-115); Potassium 3.9 mmol/L (3.3-5.1); Sodium 137 mmol/L (135-145)
--- NOTE | 2023-11-16 22:54 | PC.NURSE ---
ALLOCATIONS CLERK called RN to room, patient not arousable. RN to room, patient breathing with palpable carotid and femoral pulse. RN requested ALLOCATIONS CLERK staff to get a POC and the vitals machine. LSCTA, S1 S2 heard. GEM CUTTER called. All required staff to room with both hospital providers at bedside. POC 257 (patient NPO and insulin held). Blood pressure taken manually 162/82. Provider overnight assessed patient, patient arousable to pressure on feet, began to make garbled speech. Per report speech is baseline for patient. telemetry and continous pulse ox ordered, labs and CT scan ordered. 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
[2023-11-17] VITALS (7 sets, daily range): BP systolic 130–147; BP diastolic 74–79; PULSE 66–81; RESP 16–18; TEMP 36–36.6; O2SAT 93–97
--- NOTE | 2023-11-17 00:37 | PC.NURSE ---
Patient remains minimally responsive during assessment. Moved upper extremity and also brief facial grimace. Vitals stable, camera sitter in use.
--- NOTE | 2023-11-17 04:59 | PC.NURSE ---
Patient is more responsive this morning. nodded yes when asked if it was ok if I repositioned him. He is moving around himself a bit in the bed during the night. Pulled blankets up over his own arms to keep warm.
[2023-11-17 07:31] LABS: Glucose, Whole Blood 226 mg/dL (60-115)
[2023-11-17] MEDS: predniSONE 20 MG TABLET 60 MG PO (08:29)
[2023-11-17] MEDS: Insulin Lispro 100 UNIT/ML 3 ML VIAL SUBCUT ×4 (08:29→20:34)
[2023-11-17] MEDS: Multivitamin TABLET 1 TAB PO (08:30)
[2023-11-17] MEDS: Folic Acid 1 MG TABLET PO (08:30)
[2023-11-17] MEDS: lisinopriL 20 MG TABLET PO (08:30)
[2023-11-17] MEDS: Thiamine HCL 100 MG TABLET PO (08:30)
[2023-11-17] MEDS: 0.9 % Sodium Chloride Flush 3 ML SYRINGE IVFLUSH ×3 (08:37→20:34)
[2023-11-17] MEDS: levETIRAcetam 500 MG TABLET PO ×2 (08:37→20:34)
[2023-11-17] MEDS: Cyanocobalamin (Vitamin B-12) 1,000 MCG/ML VIAL 1000 MCG IM (08:37)
[2023-11-17] MEDS: Atorvastatin Calcium 10 MG TABLET PO (08:37)
[2023-11-17 11:29] LABS: Glucose, Whole Blood 252 mg/dL (60-115)
[2023-11-17] MEDS: Enoxaparin Sodium 40 MG/0.4 ML SYRINGE SUBCUT (11:48)
--- NOTE | 2023-11-17 12:03 | HO.PM.IMPN ---
Subjective Subjective Date of Service: 11/17/23 Interval History: confusion vs amnesia Review of Systems mental status seems somewhat down than yesterday no fevers generalised weak overnight events noted-patient was more weak ,currently patient s awake seems simialr to yesterday Physical Exam Vital Signs: Vital Signs: Last Vital Signs Temp 96.9 F 11/17/23 07:07 Pulse 66 11/17/23 07:07 Resp 16 11/17/23 07:07 BP 134/75 11/17/23 08:30 Pulse Ox 96 11/17/23 07:07 O2 Del Method Room Air 11/17/23 07:07 BMI result Body Mass Index 24.0 Appearance: Alert.? Oriented X1, somwhat plesantly confused .? cvs: [id number], [id number] . res: clear to auscultation ,no rhonchii or wheezing abd: no rebound or guarding ,nt, bs present. ext pulses present , no cyanosis . neuro: axo3 , nonfocal. Objective Data Active Medications Acetaminophen (Acetaminophen 325 Mg Tablet) 650 mg PO Q6H PRN PRN Reason: Pain, Mild (1-3), h/a, fever Atorvastatin Calcium (Atorvastatin Calcium 10 Mg Tablet) 10 mg PO DAILY [facility] Last Admin: 11/17/23 08:37 Dose: 10 mg Documented By: GILBERTO Cyanocobalamin (Cyanocobalamin (Vitamin B-12) 1,000 Mcg/Ml Vial) 1,000 mcg IM DAILY [facility] Last Admin: 11/17/23 08:37 Dose: 1,000 mcg Documented By: GILBERTO Enoxaparin Sodium (Enoxaparin Sodium 40 Mg/0.4 Ml Syringe) 40 mg SUBCUT Q24H [facility] Last Admin: 11/17/23 11:48 Dose: 40 mg Documented By: TYLER Folic Acid (Folic Acid 1 Mg Tablet) 1 mg PO DAILY [facility] Last Admin: 11/17/23 08:30 Dose: 1 mg Documented By: GILBERTO Glucose (Glucose Gel 15 Gm Gel..Gram.) 15 gm PO Q15M PRN; Protocol PRN Reason: per Hypoglycemia Standing Ord. Dextrose (D10) 250 mls @ 750 mls/hr IV Q15M PRN; Protocol PRN Reason: per Hypoglycemia Standing Ord. Insulin Human Lispro (Insulin Lispro 100 Unit/Ml 3 Ml Vial) 0 unit SUBCUT QIDACHS [facility]; Protocol Last Admin: 11/17/23 11:48 Dose: 6 unit Documented By: TYLER Levetiracetam (Levetiracetam 500 Mg Tablet) 500 mg PO BID [facility] Last Admin: 11/17/23 08:37 Dose: 500 mg Documented By: GILBERTO Lisinopril (Lisinopril 20 Mg Tablet) 20 mg PO DAILY [facility]; Protocol Last Admin: 11/17/23 08:30 Dose: 20 mg Documented By: GILBERTO Magnesium Hydroxide (Milk Of Magnesia 30 Ml Oral.Susp) 30 ml PO DAILY PRN PRN Reason: Constipation Multivitamins/Vitamin C (Multivitamin Tablet) 1 tab PO DAILY [facility] Last Admin: 11/17/23 08:30 Dose: 1 tab Documented By: GILBERTO Ondansetron HCl (Ondansetron Hcl 4 Mg/2 Ml Vial) 4 mg IVPUSH Q8H PRN PRN Reason: Nausea and Vomiting Prednisone (Prednisone 20 Mg Tablet) 60 mg PO DAILY [facility] Last Admin: 11/17/23 08:29 Dose: 60 mg Documented By: GILBERTO Sodium Chloride (0.9 % Sodium Chloride Flush 3 Ml Syringe) 3 ml IVFLUSH QSHIFT [facility] Last Admin: 11/17/23 08:37 Dose: 3 ml Documented By: GILBERTO Thiamine HCl (Thiamine Hcl 100 Mg Tablet) 100 mg PO DAILY [facility] Last Admin: 11/17/23 08:30 Dose: 100 mg Documented By: GILBERTO Labs 11/16/23 22:15 11/16/23 22:15 Labs: Laboratory Results - last 24 hr 11/16/23 11/16/23 11/16/23 13:28 13:28 15:44 MCV MCH MCHC RDW Plt Count MPV Absolute Nucleated RBC Nucleated RBC % (auto) Anion Gap Estim Creat Clear Calc Estimated GFR POC Glucose 160 H Random Glucose Calcium Magnesium CSF Tube Number 1 4 CSF Volume 2.0 CSF Appearance CLEAR CSF Color COLORLESS CSF WBC 4 CSF RBC 1 CSF Lymphocytes 90 CSF Monocytes % 10 CSF Appearance (b) Clear, Colorless CSF Glucose 95 CSF Total Protein 92.4 H CSF C.neoform/gat PCR Not Detected CSF CMV DNA (PCR) Not Detected CSF Enterovirus (PCR) Not Detected CSF E. coli K1 (PCR) Not Detected CSF H. influenzae (PCR) Not Detected CSF HSV I (PCR) Not Detected CSF HSV II (PCR) Not Detected CSF HHV 6 (PCR) Not Detected CSF L.monocytogenes PCR Not Detected CSF N. meningitidis PCR Not Detected CSF Parechovirus (PCR) Not Detected CSF S. agalactiae (PCR) Not Detected CSF S. pneumoniae (PCR) Not Detected CSF VZV (PCR) Not Detected 11/16/23 11/16/23 11/16/23 20:05 22:04 22:15 MCV 94.4 MCH 35.3 H MCHC 37.4 H RDW 12.3 Plt Count 209 MPV 9.6 Absolute Nucleated RBC 0.000 Nucleated RBC % (auto) 0.0 Anion Gap 14 Estim Creat Clear Calc 80.5 Estimated GFR > 60 POC Glucose 208 H 257 H Random Glucose 253 H Calcium 9.1 Magnesium 2.0 CSF Tube Number CSF Volume CSF Appearance CSF Color CSF WBC CSF RBC CSF Lymphocytes CSF Monocytes % CSF Appearance (b) CSF Glucose CSF Total Protein CSF C.neoform/gat PCR CSF CMV DNA (PCR) CSF Enterovirus (PCR) CSF E. coli K1 (PCR) CSF H. influenzae (PCR) CSF HSV I (PCR) CSF HSV II (PCR) CSF HHV 6 (PCR) CSF L.monocytogenes PCR CSF N. meningitidis PCR CSF Parechovirus (PCR) CSF S. agalactiae (PCR) CSF S. pneumoniae (PCR) CSF VZV (PCR) 11/17/23 11/17/23 07:09 11:17 MCV MCH MCHC RDW Plt Count MPV Absolute Nucleated RBC Nucleated RBC % (auto) Anion Gap Estim Creat Clear Calc Estimated GFR POC Glucose 226 H 252 H Random Glucose Calcium Magnesium CSF Tube Number CSF Volume CSF Appearance CSF Color CSF WBC CSF RBC CSF Lymphocytes CSF Monocytes % CSF Appearance (b) CSF Glucose CSF Total Protein CSF C.neoform/gat PCR CSF CMV DNA (PCR) CSF Enterovirus (PCR) CSF E. coli K1 (PCR) CSF H. influenzae (PCR) CSF HSV I (PCR) CSF HSV II (PCR) CSF HHV 6 (PCR) CSF L.monocytogenes PCR CSF N. meningitidis PCR CSF Parechovirus (PCR) CSF S. agalactiae (PCR) CSF S. pneumoniae (PCR) CSF VZV (PCR) Microbiology Microbiology Results: Microbiology 11/16/23 13:28 Gram Stain - Final Cerebrospinal Fluid CSF Examination - Final Fluid Description - Final CSF Culture - Preliminary No growth to date. Assessment and Plan (1) Encephalopathy: Status: Acute Plan 78 year old male with history on non insulin dependent type 2 diabetes, hld, htn to be observed for global amnesia amnesia /encephalopathy unclear etiology CT shows chronic microangiopathic but no acute intracranial abnormality or evidence of infarction mri negative No uremia, ammonia level normal. TSH normal, VBG reassuring without hypercapnia. Folic acid 11.7, vitamin B12 slightly low at 152. tick panel and lyme pcr negative. Syphilis RPR negative plan: continue vitamin b12 1000mg IM daily, thiamine and folic acid given unknown history of etoh abuse eeg noted-on keppra 500 mg bid Lumbar puncture-mostly negative except elevated protein repeat eeg done pending neurology followup-added autoimmune ab panel and prednisone. Vitamin B12 deficiency-level 152, unlikely to be directly related to patient's symptoms per neuro continue 1g vitamin b12 IM daily. 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 Quality Stroke Does the patient have a stroke diagnosis?: No VTE Prior VTE?: No VTE Risk Level:: Medical - moderate - high VTE Device Contraindication: Treatment Not Indicated VTE Drug Contraindication: N/A - Med Ordered
[2023-11-17 12:54] LABS: Estimated Average Glucose 134 mg/dL; Hemoglobin A1c % 6.3 % (<6.0)
[2023-11-17] MEDS: Insulin Glargine,Hum.rec.anlog 100 UNIT/ML 10 ML VIAL SUBCUT (14:08)
[2023-11-17 16:03] LABS: Glucose, Whole Blood 219 mg/dL (60-115)
[2023-11-17 20:16] LABS: Glucose, Whole Blood 284 mg/dL (60-115)
[2023-11-18 03:44] VITALS: BP 138/78; PULSE 69; RESP 18; TEMP 36.4; O2SAT 96
[2023-11-18 06:07] LABS: Anion Gap 12 (12-20); Blood Urea Nitrogen 20 mg/dL (9-16); Calcium 9.5 mg/dL (8.4-10.2); Carbon Dioxide 28 mmol/L (22-29); Chloride 105 mmol/L (96-108); Creatinine Clr Calc Pharmacy 77.5; Estimated Glomerular Filt Rate > 60; Glucose Random 115 mg/dL (60-115); Potassium 3.8 mmol/L (3.3-5.1); Sodium 141 mmol/L (135-145)
[2023-11-18 07:04] VITALS: BP 145/80; PULSE 64; RESP 16; TEMP 36.6; O2SAT 99
[2023-11-18 07:28] LABS: Glucose, Whole Blood 112 mg/dL (60-115)
[2023-11-18] MEDS: Cyanocobalamin (Vitamin B-12) 1,000 MCG/ML VIAL 1000 MCG IM (07:45)
[2023-11-18] MEDS: Insulin Glargine,Hum.rec.anlog 100 UNIT/ML 10 ML VIAL SUBCUT (07:45)
[2023-11-18] MEDS: Atorvastatin Calcium 10 MG TABLET PO (07:46)
[2023-11-18] MEDS: Thiamine HCL 100 MG TABLET PO (07:46)
[2023-11-18] MEDS: predniSONE 20 MG TABLET 60 MG PO (07:46)
[2023-11-18] MEDS: Folic Acid 1 MG TABLET PO (07:46)
[2023-11-18] MEDS: Multivitamin TABLET 1 TAB PO (07:46)
[2023-11-18] MEDS: 0.9 % Sodium Chloride Flush 3 ML SYRINGE IVFLUSH ×2 (07:46→16:49)
[2023-11-18] MEDS: levETIRAcetam 500 MG TABLET PO (07:46)
--- NOTE | 2023-11-18 09:56 | PM.NEUROCN ---
History of Present Illness Data of Consult Service Date: 11/18/23 Primary Care Provider: Lito Doherty MD [facility] Reason for consult: Encephalopathy 78 years old man with encephalopathy of unknown cause with CSF finding suggestive of atypical encephalitis. Meningeal encephalitis screen on CSF was negative. Lyme and babesiosis test was negative CSF autoimmune panel and test for West Nile virus were pending. Because of previous EEG abnormalities he was started on levetiracetam. His mental status has been fluctuating. Review of Systems Review of Systems: Could not be reliably done [facility] [place] Past Medical History Medical History HLD (hyperlipidemia) HTN (hypertension) Type 2 diabetes mellitus Social History Social History Household Members: Spouse Housing: House Do you presently have visiting nurse or other home services: No Comment: refusing socks at this time. Patient Tobacco Use Status: Never used Tobacco Smoked in Last 30 Days: No Use of substances other than those prescribed or required for medical reasons: No Currently Displaying Signs/Symptoms of Drug Intoxication Withdrawal: No Do you feel safe in your current relationship?: Yes Advance Directives: No Advance Directives Information Provided: No Do you have a plan to hurt others: No Plan Recently lost weight without trying: Unsure service: No Meds Allergies Allergy/AdvReac Type Severity Reaction Status Date / Time Penicillins Allergy Rash Verified 11/10/23 20:01 Active Medications: Current Medications Acetaminophen (Acetaminophen 325 Mg Tablet) 650 mg PO Q6H PRN PRN Reason: Pain, Mild (1-3), h/a, fever Atorvastatin Calcium (Atorvastatin Calcium 10 Mg Tablet) 10 mg PO DAILY [facility] Last Admin: 11/18/23 07:46 Dose: 10 mg Cyanocobalamin (Cyanocobalamin (Vitamin B-12) 1,000 Mcg/Ml Vial) 1,000 mcg IM DAILY [facility] Last Admin: 11/18/23 07:45 Dose: 1,000 mcg Enoxaparin Sodium (Enoxaparin Sodium 40 Mg/0.4 Ml Syringe) 40 mg SUBCUT Q24H [facility] Last Admin: 11/17/23 11:48 Dose: 40 mg Folic Acid (Folic Acid 1 Mg Tablet) 1 mg PO DAILY [facility] Last Admin: 11/18/23 07:46 Dose: 1 mg Glucose (Glucose Gel 15 Gm Gel..Gram.) 15 gm PO Q15M PRN; Protocol PRN Reason: per Hypoglycemia Standing Ord. Dextrose (D10) 250 mls @ 750 mls/hr IV Q15M PRN; Protocol PRN Reason: per Hypoglycemia Standing Ord. Insulin Glargine (Insulin Glargine,Hum.Rec.Anlog 100 Unit/Ml 10 Ml Vial) 5 unit SUBCUT DAILY [facility] Last Admin: 11/18/23 07:45 Dose: 5 unit Insulin Human Lispro (Insulin Lispro 100 Unit/Ml 3 Ml Vial) 0 unit SUBCUT QIDACHS [facility]; Protocol Last Admin: 11/18/23 07:37 Dose: Not Given Levetiracetam (Levetiracetam 500 Mg Tablet) 500 mg PO BID [facility] Last Admin: 11/18/23 07:46 Dose: 500 mg Magnesium Hydroxide (Milk Of Magnesia 30 Ml Oral.Susp) 30 ml PO DAILY PRN PRN Reason: Constipation Multivitamins/Vitamin C (Multivitamin Tablet) 1 tab PO DAILY [facility] Last Admin: 11/18/23 07:46 Dose: 1 tab Ondansetron HCl (Ondansetron Hcl 4 Mg/2 Ml Vial) 4 mg IVPUSH Q8H PRN PRN Reason: Nausea and Vomiting Prednisone (Prednisone 20 Mg Tablet) 60 mg PO DAILY [facility] Last Admin: 11/18/23 07:46 Dose: 60 mg Sodium Chloride (0.9 % Sodium Chloride Flush 3 Ml Syringe) 3 ml IVFLUSH QSHIFT [facility] Last Admin: 11/18/23 07:46 Dose: 3 ml Thiamine HCl (Thiamine Hcl 100 Mg Tablet) 100 mg PO DAILY [facility] Last Admin: 11/18/23 07:46 Dose: 100 mg Home Medications ?Medication ?Instructions ?Recorded ?Confirmed ?Last Taken ?Type buspirone 7.5 mg tablet 7.5 mg PO BID 11/12/23 11/12/23 Unknown History linagliptin 5 mg tablet (Tradjenta) 5 mg PO DAILY 11/12/23 11/12/23 11/10/23 06:00 History lisinopril 20 mg tablet 20 mg PO DAILY 11/12/23 11/12/23 11/10/23 06:00 History simvastatin 20 mg tablet 20 mg PO BEDTIME 11/12/23 11/12/23 11/09/23 19:00 History Physical Exam Vital Signs: Vital Signs: Last Vital Signs Temp 97.8 F 11/18/23 07:04 Pulse 64 11/18/23 07:04 Resp 16 11/18/23 07:04 BP 145/80 H 11/18/23 07:04 Pulse Ox 99 11/18/23 07:04 O2 Del Method Room Air 11/18/23 07:04 BMI result Body Mass Index 24.0 Neuro: Other: He is somewhat drowsy but able to make an eye contact and answer questions and follow simple commands. He knew that he was in hospital but could not tell me which hospital. When I greeted him with ?happy father's day?, he lightheaded up and smiled and interacted well. There was no focal weakness. Face was symmetrical. Visual boss are full. Speech was normal. Results Labs 11/16/23 22:15 11/18/23 05:43 Labs: BMP 11/18/23 05:43 Sodium 141 Potassium 3.8 Chloride 105 Carbon Dioxide 28 BUN 20 H Creatinine 0.81 Calcium 9.5 Electroencephalogram revealed no epileptic activity. Generalized slowing was noted. Microbiology Microbiology Results: Microbiology 11/16/23 13:28 Cerebrospinal Fluid Gram Stain - Final 11/16/23 13:28 Cerebrospinal Fluid CSF Examination - Final 11/16/23 13:28 Cerebrospinal Fluid Fluid Description - Final 11/16/23 13:28 Cerebrospinal Fluid CSF Culture - Preliminary No growth to date. 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 Autoimmune etiology or rare organism such as West Nile are possibilities. At this time my recommendation is to continue prednisone 60 mg a day for couple of weeks and then consider slow taper at that time. In the meantime, hopefully, results for autoimmune panel and West Nile virus should be back. Dose of levetiracetam can be decreased to 250 mg twice a day. At this time, he is being tentatively treated for autoimmune encephalitis. Procedures Date of Service Date of Service: 11/18/23
[2023-11-18 11:12] LABS: Glucose, Whole Blood 247 mg/dL (60-115)
--- NOTE | 2023-11-18 11:42 | HO.PM.IMPN ---
Subjective Subjective Date of Service: 11/18/23 Interval History: Encephalopathy Review of Systems mental status seems flactuating seems somewhat improving this morning no fevers or chills Physical Exam Vital Signs: Vital Signs: Last Vital Signs Temp 97.8 F 11/18/23 07:04 Pulse 64 11/18/23 07:04 Resp 16 11/18/23 07:04 BP 145/80 H 11/18/23 07:04 Pulse Ox 99 11/18/23 07:04 O2 Del Method Room Air 11/18/23 07:04 BMI result Body Mass Index 24.0 Appearance: Alert.? Oriented X2, somewhat better responses today,but flactuating .? cvs: [id number], [id number] . res: clear to auscultation ,no rhonchii or wheezing abd: no rebound or guarding ,nt, bs present. ext pulses present , no cyanosis . neuro: axo3 , nonfocal. Objective Data Active Medications Acetaminophen (Acetaminophen 325 Mg Tablet) 650 mg PO Q6H PRN PRN Reason: Pain, Mild (1-3), h/a, fever Atorvastatin Calcium (Atorvastatin Calcium 10 Mg Tablet) 10 mg PO DAILY [facility] Last Admin: 11/18/23 07:46 Dose: 10 mg Documented By: GILBERTO Cyanocobalamin (Cyanocobalamin (Vitamin B-12) 1,000 Mcg/Ml Vial) 1,000 mcg IM DAILY [facility] Last Admin: 11/18/23 07:45 Dose: 1,000 mcg Documented By: GILBERTO Enoxaparin Sodium (Enoxaparin Sodium 40 Mg/0.4 Ml Syringe) 40 mg SUBCUT Q24H [facility] Last Admin: 11/17/23 11:48 Dose: 40 mg Documented By: TYLER Folic Acid (Folic Acid 1 Mg Tablet) 1 mg PO DAILY [facility] Last Admin: 11/18/23 07:46 Dose: 1 mg Documented By: GILBERTO Glucose (Glucose Gel 15 Gm Gel..Gram.) 15 gm PO Q15M PRN; Protocol PRN Reason: per Hypoglycemia Standing Ord. Dextrose (D10) 250 mls @ 750 mls/hr IV Q15M PRN; Protocol PRN Reason: per Hypoglycemia Standing Ord. Insulin Glargine (Insulin Glargine,Hum.Rec.Anlog 100 Unit/Ml 10 Ml Vial) 5 unit SUBCUT DAILY [facility] Last Admin: 11/18/23 07:45 Dose: 5 unit Documented By: GILBERTO Insulin Human Lispro (Insulin Lispro 100 Unit/Ml 3 Ml Vial) 0 unit SUBCUT QIDACHS [facility]; Protocol Last Admin: 11/18/23 07:37 Dose: Not Given Documented By: GILBERTO Non-Admin Reason: No Insulin Coverage Levetiracetam (Levetiracetam 500 Mg Tablet) 500 mg PO BID [facility] Last Admin: 11/18/23 07:46 Dose: 500 mg Documented By: GILBERTO Magnesium Hydroxide (Milk Of Magnesia 30 Ml Oral.Susp) 30 ml PO DAILY PRN PRN Reason: Constipation Multivitamins/Vitamin C (Multivitamin Tablet) 1 tab PO DAILY [facility] Last Admin: 11/18/23 07:46 Dose: 1 tab Documented By: GILBERTO Ondansetron HCl (Ondansetron Hcl 4 Mg/2 Ml Vial) 4 mg IVPUSH Q8H PRN PRN Reason: Nausea and Vomiting Prednisone (Prednisone 20 Mg Tablet) 60 mg PO DAILY [facility] Last Admin: 11/18/23 07:46 Dose: 60 mg Documented By: GILBERTO Sodium Chloride (0.9 % Sodium Chloride Flush 3 Ml Syringe) 3 ml IVFLUSH QSHIFT [facility] Last Admin: 11/18/23 07:46 Dose: 3 ml Documented By: GILBERTO Thiamine HCl (Thiamine Hcl 100 Mg Tablet) 100 mg PO DAILY [facility] Last Admin: 11/18/23 07:46 Dose: 100 mg Documented By: GILBERTO Labs 11/16/23 22:15 11/18/23 05:43 Labs: Laboratory Results - last 24 hr 11/17/23 11/17/23 11/17/23 12:31 15:56 20:06 Hold Purple Top Anion Gap Estim Creat Clear Calc Estimated GFR POC Glucose 219 H 284 H Random Glucose Estimat Average Glucose 134 Hemoglobin A1c % 6.3 H Calcium 11/18/23 11/18/23 11/18/23 05:43 05:55 07:10 Hold Purple Top SEE NOTE Anion Gap 12 Estim Creat Clear Calc 77.5 Estimated GFR > 60 POC Glucose 112 Random Glucose 115 Estimat Average Glucose Hemoglobin A1c % Calcium 9.5 11/18/23 11:04 Hold Purple Top Anion Gap Estim Creat Clear Calc Estimated GFR POC Glucose 247 H Random Glucose Estimat Average Glucose Hemoglobin A1c % Calcium Microbiology Microbiology Results: Microbiology 11/16/23 13:28 Gram Stain - Final Cerebrospinal Fluid CSF Examination - Final Fluid Description - Final CSF Culture - Preliminary No growth to date. Assessment and Plan (1) Encephalitis: Status: Acute Assessment and Plan: 78 year old male with history on non insulin dependent type 2 diabetes, hld, htn to be observed for global amnesia Encephalopathy unclear etiology CT shows chronic microangiopathic but no acute intracranial abnormality or evidence of infarction mri negative No uremia, ammonia level normal. TSH normal, VBG reassuring without hypercapnia. Folic acid 11.7, vitamin B12 slightly low at 152. tick panel and lyme pcr negative. Syphilis RPR negative LP-elevated protein levels ,encepahlities/meningitis panel neg results for autoimmune panel and West Nile virus pending plan: continue vitamin b12 1000mg IM daily, thiamine and folic acid given unknown history of etoh abuse repeat eeg reviewed by neuro-rec to adjust keppra 250 mg po bid neurology follow up-continue steriods (await for results for autoimmune panel and West Nile virus pending). Vitamin B12 deficiency -level 152, unlikely to be directly related to patient's symptoms per neuro -add 1g vitamin b12 IM daily. 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 Discussed with patient daughter in detail and updated her. Quality Stroke Does the patient have a stroke diagnosis?: No VTE Prior VTE?: No VTE Risk Level:: Medical - moderate - high VTE Device Contraindication: Treatment Not Indicated VTE Drug Contraindication: N/A - Med Ordered
[2023-11-18] MEDS: Insulin Lispro 100 UNIT/ML 3 ML VIAL SUBCUT ×3 (12:10→20:18)
[2023-11-18] MEDS: Enoxaparin Sodium 40 MG/0.4 ML SYRINGE SUBCUT (12:10)
[2023-11-18 15:11] VITALS: BP 125/63; PULSE 72; RESP 18; TEMP 36.4; O2SAT 97
[2023-11-18 16:15] LABS: Glucose, Whole Blood 214 mg/dL (60-115)
[2023-11-18 19:20] VITALS: BP 163/78; PULSE 80; RESP 18; TEMP 36.5; O2SAT 97
[2023-11-18] MEDS: levETIRAcetam 250 MG TABLET PO (20:08)
[2023-11-18 20:21] LABS: Glucose, Whole Blood 277 mg/dL (60-115)
[2023-11-19 02:57] VITALS: BP 141/68; PULSE 63; RESP 18; TEMP 36.7; O2SAT 96
--- NOTE | 2023-11-19 06:15 | PC.NURSE ---
One episode of aflutter x1 minute then convert back to NSR. On assess at time, patient was voiding and asymptomatic. Dr Wally Cano make aware. No orders.
[2023-11-19 07:22] VITALS: BP 142/86; PULSE 70; RESP 16; TEMP 36; O2SAT 96
[2023-11-19 07:29] LABS: Glucose, Whole Blood 110 mg/dL (60-115)
[2023-11-19] MEDS: Cyanocobalamin (Vitamin B-12) 1,000 MCG/ML VIAL 1000 MCG IM (08:40)
[2023-11-19] MEDS: Atorvastatin Calcium 10 MG TABLET PO (08:41)
[2023-11-19] MEDS: Folic Acid 1 MG TABLET PO (08:41)
[2023-11-19] MEDS: 0.9 % Sodium Chloride Flush 3 ML SYRINGE IVFLUSH ×3 (08:41→20:56)
[2023-11-19] MEDS: Thiamine HCL 100 MG TABLET PO (08:41)
[2023-11-19] MEDS: predniSONE 20 MG TABLET 60 MG PO (08:41)
[2023-11-19] MEDS: Insulin Glargine,Hum.rec.anlog 100 UNIT/ML 10 ML VIAL SUBCUT (08:41)
[2023-11-19] MEDS: levETIRAcetam 250 MG TABLET PO ×2 (08:41→20:56)
[2023-11-19] MEDS: Multivitamin TABLET 1 TAB PO (08:41)
[2023-11-19 11:16] LABS: Glucose, Whole Blood 227 mg/dL (60-115)
[2023-11-19] MEDS: Enoxaparin Sodium 40 MG/0.4 ML SYRINGE SUBCUT (12:18)
[2023-11-19] MEDS: Insulin Lispro 100 UNIT/ML 3 ML VIAL SUBCUT ×3 (12:18→20:56)
--- NOTE | 2023-11-19 13:32 | P.PNIM_ITS ---
Subjective Subjective Date of Service: 11/19/23 Interval History: Encephalopathy Review of Systems mental status seems flactuating-seems similar to yesterday no fevers or chills Physical Exam 2 Vital Signs: Vital Signs: Last Vital Signs Temp 96.8 F 11/19/23 07:22 Pulse 70 11/19/23 07:22 Resp 16 11/19/23 07:22 BP 142/86 H 11/19/23 07:22 Pulse Ox 96 11/19/23 07:22 O2 Del Method Room Air 11/19/23 07:22 BMI result Body Mass Index 24.0 Appearance: Alert.? Oriented X2. cvs: rrr, [id number] . res: clear to auscultation ,no rhonchii or wheezing abd: no rebound or guarding ,nt, bs present. ext pulses present , no cyanosis . neuro: axo3 , nonfocal. Objective Data Active Medications Acetaminophen (Acetaminophen 325 Mg Tablet) 650 mg PO Q6H PRN PRN Reason: Pain, Mild (1-3), h/a, fever Atorvastatin Calcium (Atorvastatin Calcium 10 Mg Tablet) 10 mg PO DAILY [facility] Last Admin: 11/19/23 08:41 Dose: 10 mg Documented By: ISABELL.COTEMA Cyanocobalamin (Cyanocobalamin (Vitamin B-12) 1,000 Mcg/Ml Vial) 1,000 mcg IM DAILY [facility] Last Admin: 11/19/23 08:40 Dose: 1,000 mcg Documented By: ISABELL.COTEMA Enoxaparin Sodium (Enoxaparin Sodium 40 Mg/0.4 Ml Syringe) 40 mg SUBCUT Q24H [facility] Last Admin: 11/19/23 12:18 Dose: 40 mg Documented By: ISABELL.COTEMA Folic Acid (Folic Acid 1 Mg Tablet) 1 mg PO DAILY [facility] Last Admin: 11/19/23 08:41 Dose: 1 mg Documented By: COTEMA Glucose (Glucose Gel 15 Gm Gel..Gram.) 15 gm PO Q15M PRN; Protocol PRN Reason: per Hypoglycemia Standing Ord. Dextrose (D10) 250 mls @ 750 mls/hr IV Q15M PRN; Protocol PRN Reason: per Hypoglycemia Standing Ord. Insulin Glargine (Insulin Glargine,Hum.Rec.Anlog 100 Unit/Ml 10 Ml Vial) 5 unit SUBCUT DAILY [facility] Last Admin: 11/19/23 08:41 Dose: 5 unit Documented By: ADILENEEMA Insulin Human Lispro (Insulin Lispro 100 Unit/Ml 3 Ml Vial) 0 unit SUBCUT QIDACHS [facility]; Protocol Last Admin: 11/19/23 12:18 Dose: 4 unit Documented By: COTEMA Levetiracetam (Levetiracetam 250 Mg Tablet) 250 mg PO BID [facility] Last Admin: 11/19/23 08:41 Dose: 250 mg Documented By: COTEMA Magnesium Hydroxide (Milk Of Magnesia 30 Ml Oral.Susp) 30 ml PO DAILY PRN PRN Reason: Constipation Multivitamins/Vitamin C (Multivitamin Tablet) 1 tab PO DAILY [facility] Last Admin: 11/19/23 08:41 Dose: 1 tab Documented By: ADILENEEMA Ondansetron HCl (Ondansetron Hcl 4 Mg/2 Ml Vial) 4 mg IVPUSH Q8H PRN PRN Reason: Nausea and Vomiting Prednisone (Prednisone 20 Mg Tablet) 60 mg PO DAILY [facility] Last Admin: 11/19/23 08:41 Dose: 60 mg Documented By: IRINA Sodium Chloride (0.9 % Sodium Chloride Flush 3 Ml Syringe) 3 ml IVFLUSH QSHIFT [facility] Last Admin: 11/19/23 08:41 Dose: 3 ml Documented By: ADILENEEMA Thiamine HCl (Thiamine Hcl 100 Mg Tablet) 100 mg PO DAILY [facility] Last Admin: 11/19/23 08:41 Dose: 100 mg Documented By: IRINA Labs 11/16/23 22:15 11/18/23 05:43 Labs: Laboratory Results - last 24 hr 11/18/23 11/18/23 11/19/23 16:04 20:10 07:21 POC Glucose 214 H 277 H 110 11/19/23 11:09 POC Glucose 227 H Microbiology Microbiology Results: Microbiology 11/16/23 13:28 Gram Stain - Final Cerebrospinal Fluid CSF Examination - Final Fluid Description - Final CSF Culture - Final No growth after 3 days. Assessment and Plan (1) Encephalitis: Status: Acute Assessment and Plan: 78 year old male with history on non insulin dependent type 2 diabetes, hld, htn to be observed for global amnesia Encephalopathy unclear etiology CT shows chronic microangiopathic but no acute intracranial abnormality or evidence of infarction mri negative,No uremia, ammonia level normal. TSH normal, VBG reassuring without hypercapnia. Folic acid 11.7, vitamin B12 slightly low at 152. tick panel and lyme pcr negative. Syphilis RPR negative LP-elevated protein levels ,encepahlities/meningitis panel neg ,csf cultures negative . results for autoimmune panel and West Nile virus pending d/w neurology-patient may consider need ivig if doesnot improve. plan: continue vitamin b12 1000mg IM daily, thiamine and folic acid given unknown history of etoh abuse repeat eeg reviewed by neuro-rec to adjust keppra 250 mg po bid neurology follow up-continue steriods (await for results for autoimmune panel and West Nile virus pending). Vitamin B12 deficiency -level 152, unlikely to be directly related to patient's symptoms per neuro -add 1g vitamin b12 IM daily. 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 Quality Stroke Does the patient have a stroke diagnosis?: No VTE Prior VTE?: No VTE Risk Level:: Medical - moderate - high VTE Device Contraindication: Treatment Not Indicated VTE Drug Contraindication: N/A - Med Ordered
[2023-11-19 15:15] VITALS: BP 141/81; PULSE 69; RESP 18; TEMP 36.7; O2SAT 95
--- NOTE | 2023-11-19 15:20 | MHC.CM.PN ---
PER MD ROUNDS, PT CONDITION REMAINS UNCHANGED, WILL OBSERVE ANOTHER DAY AND THEN DETERMINE FURTHER WORK UP CM FOLLOWING FOR DC PLANNING
[2023-11-19 16:14] LABS: Glucose, Whole Blood 244 mg/dL (60-115)
[2023-11-19 19:20] VITALS: BP 145/69; PULSE 80; RESP 18; TEMP 36.7; O2SAT 96
[2023-11-19 20:51] LABS: Glucose, Whole Blood 260 mg/dL (60-115)
[2023-11-20 03:21] VITALS: BP 138/69; PULSE 65; TEMP 36.6; O2SAT 96
[2023-11-20 07:07] VITALS: BP 141/77; PULSE 63; RESP 16; TEMP 36; O2SAT 97
[2023-11-20 07:26] LABS: Glucose, Whole Blood 116 mg/dL (60-115)
[2023-11-20] MEDS: Multivitamin TABLET 1 TAB PO (08:05)
[2023-11-20] MEDS: Atorvastatin Calcium 10 MG TABLET PO (08:05)
[2023-11-20] MEDS: levETIRAcetam 250 MG TABLET PO ×2 (08:05→20:34)
[2023-11-20] MEDS: Folic Acid 1 MG TABLET PO (08:05)
[2023-11-20] MEDS: predniSONE 20 MG TABLET 60 MG PO (08:06)
[2023-11-20] MEDS: Thiamine HCL 100 MG TABLET PO (08:06)
[2023-11-20] MEDS: Cyanocobalamin (Vitamin B-12) 1,000 MCG/ML VIAL 1000 MCG IM (08:06)
[2023-11-20] MEDS: Insulin Glargine,Hum.rec.anlog 100 UNIT/ML 10 ML VIAL SUBCUT (08:06)
[2023-11-20] MEDS: 0.9 % Sodium Chloride Flush 3 ML SYRINGE IVFLUSH ×3 (08:10→20:34)
[2023-11-20 11:34] LABS: Glucose, Whole Blood 245 mg/dL (60-115)
[2023-11-20] MEDS: Enoxaparin Sodium 40 MG/0.4 ML SYRINGE SUBCUT (11:54)
[2023-11-20] MEDS: Insulin Lispro 100 UNIT/ML 3 ML VIAL SUBCUT ×3 (11:54→20:34)
--- NOTE | 2023-11-20 14:24 | HO.PM.IMPN ---
Subjective Subjective Date of Service: 11/20/23 Interval History: Being followed for encephalopathy Patient remains confused able to name the objects but does not know the month the date, not aware why he has in the hospital, no acute events overnight. No seizure-like activity noted. Review of Systems Unable to obtain detailed review of system due to mental status Physical Exam Vital Signs: Vital Signs: Last Vital Signs Temp 96.8 F 11/20/23 07:07 Pulse 63 11/20/23 07:07 Resp 16 11/20/23 07:07 BP 141/77 H 11/20/23 07:07 Pulse Ox 97 11/20/23 07:07 O2 Del Method Room Air 11/20/23 07:07 BMI result Body Mass Index 24.0 Const: Other: General resting comfortably in no acute distress. Neck supple no JVD. CVS regular rate rhythm, Respiratory lungs clear to auscultation, no respiratory distress, no wheeze, no rhonchi. Gastrointestinal abdomen soft, non tender, bowel sounds audible Extremities no edema. Neuro non focal ,moving all 4 extremity ,speech clear, face symmetrical, not aware of day, time or month, not aware of place/person. Skin no rash Psych poor insight Objective Data Active Medications Acetaminophen (Acetaminophen 325 Mg Tablet) 650 mg PO Q6H PRN PRN Reason: Pain, Mild (1-3), h/a, fever Atorvastatin Calcium (Atorvastatin Calcium 10 Mg Tablet) 10 mg PO DAILY [facility] Last Admin: 11/20/23 08:05 Dose: 10 mg Documented By: DANYELL Cyanocobalamin (Cyanocobalamin (Vitamin B-12) 1,000 Mcg/Ml Vial) 1,000 mcg IM DAILY [facility] Last Admin: 11/20/23 08:06 Dose: 1,000 mcg Documented By: DANYELL Enoxaparin Sodium (Enoxaparin Sodium 40 Mg/0.4 Ml Syringe) 40 mg SUBCUT Q24H [facility] Last Admin: 11/20/23 11:54 Dose: 40 mg Documented By: DANYELL Folic Acid (Folic Acid 1 Mg Tablet) 1 mg PO DAILY [facility] Last Admin: 11/20/23 08:05 Dose: 1 mg Documented By: DANYELL Glucose (Glucose Gel 15 Gm Gel..Gram.) 15 gm PO Q15M PRN; Protocol PRN Reason: per Hypoglycemia Standing Ord. Dextrose (D10) 250 mls @ 750 mls/hr IV Q15M PRN; Protocol PRN Reason: per Hypoglycemia Standing Ord. Insulin Glargine (Insulin Glargine,Hum.Rec.Anlog 100 Unit/Ml 10 Ml Vial) 5 unit SUBCUT DAILY [facility] Last Admin: 11/20/23 08:06 Dose: 5 unit Documented By: DANYELL Insulin Human Lispro (Insulin Lispro 100 Unit/Ml 3 Ml Vial) 0 unit SUBCUT QIDACHS [facility]; Protocol Last Admin: 11/20/23 11:54 Dose: 4 unit Documented By: DANYELL Levetiracetam (Levetiracetam 250 Mg Tablet) 250 mg PO BID [facility] Last Admin: 11/20/23 08:05 Dose: 250 mg Documented By: DANYELL Magnesium Hydroxide (Milk Of Magnesia 30 Ml Oral.Susp) 30 ml PO DAILY PRN PRN Reason: Constipation Multivitamins/Vitamin C (Multivitamin Tablet) 1 tab PO DAILY [facility] Last Admin: 11/20/23 08:05 Dose: 1 tab Documented By: DANYELL Ondansetron HCl (Ondansetron Hcl 4 Mg/2 Ml Vial) 4 mg IVPUSH Q8H PRN PRN Reason: Nausea and Vomiting Prednisone (Prednisone 20 Mg Tablet) 60 mg PO DAILY [facility] Last Admin: 11/20/23 08:06 Dose: 60 mg Documented By: DANYELL Sodium Chloride (0.9 % Sodium Chloride Flush 3 Ml Syringe) 3 ml IVFLUSH QSHIFT [facility] Last Admin: 11/20/23 08:10 Dose: 3 ml Documented By: DANYELL Thiamine HCl (Thiamine Hcl 100 Mg Tablet) 100 mg PO DAILY [facility] Last Admin: 11/20/23 08:06 Dose: 100 mg Documented By: DANYELL Labs 11/16/23 22:15 11/18/23 05:43 Labs: Laboratory Results - last 24 hr 11/16/23 11/19/23 11/19/23 13:28 16:11 20:16 POC Glucose 244 H 260 H Ref Lab Test Result SEE NOTE 11/20/23 11/20/23 07:06 11:23 POC Glucose 116 H 245 H Ref Lab Test Result Microbiology Microbiology Results: Microbiology 11/16/23 13:28 Gram Stain - Final Cerebrospinal Fluid CSF Examination - Final Fluid Description - Final CSF Culture - Final No growth after 3 days. Assessment and Plan (1) Encephalitis: Status: Acute Assessment and Plan: 78 year old male with history on non insulin dependent type 2 diabetes, hld, htn to be observed for global amnesia Encephalopathy unclear etiology CT shows chronic microangiopathic but no acute intracranial abnormality or evidence of infarction mri negative,No uremia, ammonia level normal. TSH normal, VBG without hypercapnia. Folic acid 11.7, vitamin B12 slightly low at 152. tick panel and lyme pcr negative. Syphilis RPR negative LP-elevated protein levels ,encepahlities/meningitis panel neg ,csf cultures negative . results for autoimmune panel are negative West Nile virus pending Will discuss with Neurology regarding treatment plan continue prednisone 60 mg daily for now continue vitamin b12 1000mg IM daily, thiamine and folic acid given unknown history of etoh abuse Continue keppra 250 mg po bid Vitamin B12 deficiency -level 152, unlikely to be directly related to patient's symptoms , Continue vitamin b12 IM daily. 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 Quality Stroke Does the patient have a stroke diagnosis?: No VTE Prior VTE?: No VTE Risk Level:: Medical - moderate - high VTE Device Contraindication: Treatment Not Indicated VTE Drug Contraindication: N/A - Med Ordered
[2023-11-20 15:08] VITALS: BP 144/78; PULSE 73; RESP 16; TEMP 36.3; O2SAT 97
[2023-11-20 16:31] LABS: Glucose, Whole Blood 296 mg/dL (60-115)
[2023-11-20 19:47] VITALS: BP 152/86; PULSE 85; RESP 18; TEMP 36.4; O2SAT 98
[2023-11-20 20:21] LABS: Glucose, Whole Blood 275 mg/dL (60-115)
[2023-11-21 03:02] VITALS: BP 147/86; PULSE 62; RESP 16; TEMP 36.4; O2SAT 96
[2023-11-21 07:37] VITALS: BP 143/80; PULSE 64; RESP 14; TEMP 36.2; O2SAT 97
[2023-11-21 07:44] LABS: Glucose, Whole Blood 126 mg/dL (60-115)
[2023-11-21] MEDS: Folic Acid 1 MG TABLET PO (08:03)
[2023-11-21] MEDS: lisinopriL 10 MG TABLET PO (08:04)
[2023-11-21] MEDS: Thiamine HCL 100 MG TABLET PO (08:04)
[2023-11-21] MEDS: levETIRAcetam 250 MG TABLET PO ×2 (08:04→21:29)
[2023-11-21] MEDS: Insulin Glargine,Hum.rec.anlog 100 UNIT/ML 10 ML VIAL 10 UNIT SUBCUT (08:04)
[2023-11-21] MEDS: Atorvastatin Calcium 10 MG TABLET PO (08:04)
[2023-11-21] MEDS: Multivitamin TABLET 1 TAB PO (08:04)
[2023-11-21] MEDS: Cyanocobalamin (Vitamin B-12) 1,000 MCG/ML VIAL 1000 MCG IM (08:04)
[2023-11-21] MEDS: predniSONE 20 MG TABLET 60 MG PO (08:04)
[2023-11-21] MEDS: 0.9 % Sodium Chloride Flush 3 ML SYRINGE IVFLUSH ×4 (08:05→21:29)
[2023-11-21 11:17] LABS: Glucose, Whole Blood 264 mg/dL (60-115)
--- NOTE | 2023-11-21 11:22 | MHC.CM.PN ---
EMR reviewed. Per MD rounds patient mental status improving, but not yet medically cleared. CM met with patient who is alert, oriented to self and place. Able to tell me his 's name, but not his daughter's. CM will continue to follow and attempt HCP when patient is less confused.
[2023-11-21] MEDS: Insulin Lispro 100 UNIT/ML 3 ML VIAL SUBCUT ×3 (11:56→21:31)
[2023-11-21] MEDS: Enoxaparin Sodium 40 MG/0.4 ML SYRINGE SUBCUT (11:57)
--- NOTE | 2023-11-21 12:35 | HO.PM.IMPN ---
Subjective Subjective Date of Service: 11/21/23 Interval History: Patient more awake alert greeted good morning , feeding himself, knows he is at [facility] but unable to answer questions about family his home situation, no acute events overnight. No fevers, no chills, no nausea, no vomiting, no abdominal pain, no hypoxia. Review of Systems Unable to obtain due to mental status. Physical Exam Vital Signs: Vital Signs: Last Vital Signs Temp 97.2 F 11/21/23 07:37 Pulse 64 11/21/23 07:37 Resp 14 11/21/23 07:37 BP 143/80 H 11/21/23 07:37 Pulse Ox 97 11/21/23 07:37 O2 Del Method Room Air 11/21/23 07:37 BMI result Body Mass Index 24.0 Const: Other: General resting comfortably, in no acute distress. Neck supple no JVD. CVS regular rate rhythm, Respiratory lungs clear to auscultation, no respiratory distress, no wheeze, no rhonchi. Gastrointestinal abdomen soft, non tender, bowel sounds audible Extremities no edema. Neuro non focal ,moving all 4 extremity ,speech clear, face symmetrical, not aware of day, time or month, aware of place/not person. Skin no rash Psych poor insight Objective Data Active Medications Acetaminophen (Acetaminophen 325 Mg Tablet) 650 mg PO Q6H PRN PRN Reason: Pain, Mild (1-3), h/a, fever Atorvastatin Calcium (Atorvastatin Calcium 10 Mg Tablet) 10 mg PO DAILY [facility] Last Admin: 11/21/23 08:04 Dose: 10 mg Documented By: DANYELL Cyanocobalamin (Cyanocobalamin (Vitamin B-12) 1,000 Mcg/Ml Vial) 1,000 mcg IM DAILY [facility] Last Admin: 11/21/23 08:04 Dose: 1,000 mcg Documented By: DABZaira Enoxaparin Sodium (Enoxaparin Sodium 40 Mg/0.4 Ml Syringe) 40 mg SUBCUT Q24H [facility] Last Admin: 11/21/23 11:57 Dose: 40 mg Documented By: DANYELL Folic Acid (Folic Acid 1 Mg Tablet) 1 mg PO DAILY [facility] Last Admin: 11/21/23 08:03 Dose: 1 mg Documented By: DANYELL Glucose (Glucose Gel 15 Gm Gel..Gram.) 15 gm PO Q15M PRN; Protocol PRN Reason: per Hypoglycemia Standing Ord. Dextrose (D10) 250 mls @ 750 mls/hr IV Q15M PRN; Protocol PRN Reason: per Hypoglycemia Standing Ord. Insulin Glargine (Insulin Glargine,Hum.Rec.Anlog 100 Unit/Ml 10 Ml Vial) 10 unit SUBCUT DAILY [facility] Last Admin: 11/21/23 08:04 Dose: 10 unit Documented By: DANYELL Insulin Human Lispro (Insulin Lispro 100 Unit/Ml 3 Ml Vial) 0 unit SUBCUT QIDACHS [facility]; Protocol Last Admin: 11/21/23 11:56 Dose: 8 unit Documented By: DANYELL Levetiracetam (Levetiracetam 250 Mg Tablet) 250 mg PO BID [facility] Last Admin: 11/21/23 08:04 Dose: 250 mg Documented By: DANYELL Lisinopril (Lisinopril 10 Mg Tablet) 10 mg PO DAILY [facility]; Protocol Last Admin: 11/21/23 08:04 Dose: 10 mg Documented By: DANYELL Magnesium Hydroxide (Milk Of Magnesia 30 Ml Oral.Susp) 30 ml PO DAILY PRN PRN Reason: Constipation Multivitamins/Vitamin C (Multivitamin Tablet) 1 tab PO DAILY [facility] Last Admin: 11/21/23 08:04 Dose: 1 tab Documented By: DANYELL Ondansetron HCl (Ondansetron Hcl 4 Mg/2 Ml Vial) 4 mg IVPUSH Q8H PRN PRN Reason: Nausea and Vomiting Prednisone (Prednisone 20 Mg Tablet) 60 mg PO DAILY [facility] Last Admin: 11/21/23 08:04 Dose: 60 mg Documented By: DANYELL Sodium Chloride (0.9 % Sodium Chloride Flush 3 Ml Syringe) 3 ml IVFLUSH QSHIFT [facility] Last Admin: 11/21/23 08:05 Dose: 3 ml Documented By: DANYELL Thiamine HCl (Thiamine Hcl 100 Mg Tablet) 100 mg PO DAILY [facility] Last Admin: 11/21/23 08:04 Dose: 100 mg Documented By: DANYELL Labs 11/16/23 22:15 11/18/23 05:43 Labs: Laboratory Results - last 24 hr 11/20/23 11/20/23 11/21/23 16:23 19:55 07:39 POC Glucose 296 H 275 H 126 H 11/21/23 11:13 POC Glucose 264 H Assessment and Plan (1) Encephalitis: Status: Acute Assessment and Plan: 78 year old male with history on non insulin dependent type 2 diabetes, hld, htn to be observed for global amnesia Encephalopathy unclear etiology More awake and interactive this morning, likely has underlying dementia with generalized cerebral volume loss and due to vitamin B12 deficiency plus CT shows chronic microangiopathic but no acute intracranial abnormality or evidence of infarction mri negative,No uremia, ammonia level normal. TSH normal, VBG without hypercapnia. Folic acid 11.7, vitamin B12 slightly low at 152. tick panel and lyme pcr negative. Syphilis RPR negative LP-elevated protein levels ,encepahlities/meningitis panel neg ,csf cultures negative . results for autoimmune panel are negative West Nile virus pending Neuro recommend to continue prednisone with taper in 2 weeks . continue vitamin b12 1000mg IM daily, thiamine and folic acid given unknown history of etoh abuse Continue keppra 250 mg po bid Vitamin B12 deficiency -level 152, unlikely to be directly related to patient's symptoms , Continue vitamin b12 IM daily. 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 Quality Stroke Does the patient have a stroke diagnosis?: No VTE Prior VTE?: No VTE Risk Level:: Medical - moderate - high VTE Device Contraindication: Treatment Not Indicated VTE Drug Contraindication: N/A - Med Ordered
[2023-11-21 16:00] VITALS: BP 143/76; PULSE 80; RESP 16; TEMP 36.3; O2SAT 98
[2023-11-21 16:05] LABS: Glucose, Whole Blood 251 mg/dL (60-115)
[2023-11-21 19:44] VITALS: BP 152/82; PULSE 77; RESP 16; TEMP 36.6; O2SAT 96
[2023-11-22 03:00] VITALS: BP 159/85; PULSE 62; RESP 18; TEMP 36.4; O2SAT 95
[2023-11-22 06:28] LABS: Glucose, Whole Blood 219 mg/dL (60-115)
[2023-11-22 07:21] LABS: Glucose, Whole Blood 99 mg/dL (60-115)
[2023-11-22 07:43] VITALS: BP 134/74; PULSE 69; RESP 16; TEMP 36.5; O2SAT 96
[2023-11-22] MEDS: Insulin Glargine,Hum.rec.anlog 100 UNIT/ML 10 ML VIAL 10 UNIT SUBCUT (08:01)
[2023-11-22] MEDS: lisinopriL 20 MG TABLET PO (08:02)
[2023-11-22] MEDS: Multivitamin TABLET 1 TAB PO (08:02)
[2023-11-22] MEDS: levETIRAcetam 250 MG TABLET PO ×2 (08:02→21:19)
[2023-11-22] MEDS: Folic Acid 1 MG TABLET PO (08:02)
[2023-11-22] MEDS: 0.9 % Sodium Chloride Flush 3 ML SYRINGE IVFLUSH ×3 (08:02→21:19)
[2023-11-22] MEDS: predniSONE 20 MG TABLET 60 MG PO (08:02)
[2023-11-22] MEDS: Atorvastatin Calcium 10 MG TABLET PO (08:02)
[2023-11-22] MEDS: Cyanocobalamin (Vitamin B-12) 1,000 MCG/ML VIAL 1000 MCG IM (08:02)
[2023-11-22] MEDS: Thiamine HCL 100 MG TABLET PO (08:02)
[2023-11-22 11:19] LABS: Glucose, Whole Blood 228 mg/dL (60-115)
--- NOTE | 2023-11-22 11:32 | HO.PM.IMPN ---
Subjective Subjective Date of Service: 11/22/23 Interval History: Being followed for acute encephalopathy of unclear etiology Patient more awake alert and interactive , able to recall name of his and aware he is at hospital, otherwise unable to provide meaningful history Review of Systems Unable to obtain due to mental status Physical Exam Vital Signs: Vital Signs: Last Vital Signs Temp 97.7 F 11/22/23 07:43 Pulse 69 11/22/23 07:43 Resp 16 11/22/23 07:43 BP 134/74 11/22/23 07:43 Pulse Ox 96 11/22/23 07:43 O2 Del Method Room Air 11/22/23 07:43 BMI result Body Mass Index 24.0 Const: Other: General resting comfortably, in no acute distress. Neck supple no JVD. CVS regular rate rhythm, Respiratory lungs clear to auscultation, no respiratory distress, no wheeze, no rhonchi. Gastrointestinal abdomen soft, non tender, bowel sounds audible Extremities no edema. Neuro non focal ,moving all 4 extremity ,speech clear, face symmetrical. Skin no rash Psych poor insight Objective Data Active Medications Acetaminophen (Acetaminophen 325 Mg Tablet) 650 mg PO Q6H PRN PRN Reason: Pain, Mild (1-3), h/a, fever Atorvastatin Calcium (Atorvastatin Calcium 10 Mg Tablet) 10 mg PO DAILY [facility] Last Admin: 11/22/23 08:02 Dose: 10 mg Documented By: DANYELL Cyanocobalamin (Cyanocobalamin (Vitamin B-12) 1,000 Mcg/Ml Vial) 1,000 mcg IM DAILY [facility] Last Admin: 11/22/23 08:02 Dose: 1,000 mcg Documented By: DANYELL Enoxaparin Sodium (Enoxaparin Sodium 40 Mg/0.4 Ml Syringe) 40 mg SUBCUT Q24H [facility] Last Admin: 11/21/23 11:57 Dose: 40 mg Documented By: DANYELL Folic Acid (Folic Acid 1 Mg Tablet) 1 mg PO DAILY [facility] Last Admin: 11/22/23 08:02 Dose: 1 mg Documented By: DANYELL Glucose (Glucose Gel 15 Gm Gel..Gram.) 15 gm PO Q15M PRN; Protocol PRN Reason: per Hypoglycemia Standing Ord. Dextrose (D10) 250 mls @ 750 mls/hr IV Q15M PRN; Protocol PRN Reason: per Hypoglycemia Standing Ord. Insulin Glargine (Insulin Glargine,Hum.Rec.Anlog 100 Unit/Ml 10 Ml Vial) 10 unit SUBCUT DAILY [facility] Last Admin: 11/22/23 08:01 Dose: 10 unit Documented By: DANYELL Insulin Human Lispro (Insulin Lispro 100 Unit/Ml 3 Ml Vial) 0 unit SUBCUT QIDACHS [facility]; Protocol Last Admin: 11/22/23 07:25 Dose: Not Given Documented By: DANYELL Non-Admin Reason: No Insulin Coverage Levetiracetam (Levetiracetam 250 Mg Tablet) 250 mg PO BID [facility] Last Admin: 11/22/23 08:02 Dose: 250 mg Documented By: DANYELL Lisinopril (Lisinopril 20 Mg Tablet) 20 mg PO DAILY [facility]; Protocol Last Admin: 11/22/23 08:02 Dose: 20 mg Documented By: DANYELL Magnesium Hydroxide (Milk Of Magnesia 30 Ml Oral.Susp) 30 ml PO DAILY PRN PRN Reason: Constipation Multivitamins/Vitamin C (Multivitamin Tablet) 1 tab PO DAILY [facility] Last Admin: 11/22/23 08:02 Dose: 1 tab Documented By: DANYELL Ondansetron HCl (Ondansetron Hcl 4 Mg/2 Ml Vial) 4 mg IVPUSH Q8H PRN PRN Reason: Nausea and Vomiting Prednisone (Prednisone 20 Mg Tablet) 60 mg PO DAILY [facility] Last Admin: 11/22/23 08:02 Dose: 60 mg Documented By: DANYELL Sodium Chloride (0.9 % Sodium Chloride Flush 3 Ml Syringe) 3 ml IVFLUSH QSHIFT [facility] Last Admin: 11/22/23 08:02 Dose: 3 ml Documented By: DANYELL Thiamine HCl (Thiamine Hcl 100 Mg Tablet) 100 mg PO DAILY [facility] Last Admin: 11/22/23 08:02 Dose: 100 mg Documented By: DANYELL Labs 11/16/23 22:15 11/18/23 05:43 Labs: Laboratory Results - last 24 hr 11/21/23 11/21/23 11/22/23 15:51 20:29 07:18 POC Glucose 251 H 219 H 99 11/22/23 11:10 POC Glucose 228 H Assessment and Plan (1) Encephalitis: Status: Acute Assessment and Plan: 78 year old male with history on non insulin dependent type 2 diabetes, hld, htn to be observed for global amnesia 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 More awake and interactive this morning, likely has underlying dementia with generalized cerebral volume loss and due to vitamin B12 deficiency CT shows chronic microangiopathic but no acute intracranial abnormality or evidence of infarction mri negative,No uremia, ammonia level normal. TSH normal, VBG without hypercapnia. Folic acid 11.7, vitamin B12 slightly low at 152. EEG suggestive of right frontocentral abnormality with suspicion of underlying structural abnormality with some irritability that could cause complex partial seizure tick panel and lyme pcr negative. Syphilis RPR negative LP-elevated protein levels ,encepahlities/meningitis panel neg ,csf cultures negative . results for autoimmune panel are negative West Nile virus pending Case discussed with Dr. Zimmerman due to high protein in CSF there is a concern that patient might have autoimmune encephalitis despite negative autoimmune panel Neuro recommend to wean prednisone from 60 mg to 40 mg today 11/21 and then to drop 10 mg Q weekly, and maintain him on 5 mg or less further dose adjustment as per Neurology Patient will need outpatient Neuro evaluation in 3-4 weeks Will continue B12 replacement on vitamin b12 1000mg IM daily, will transition to Q weekly x1 month and then 1000 subQ/IM q.month, alternatively 1000 mcg by mouth daily on thiamine and folic acid given unknown history of etoh abuse Continue keppra 250 mg po bid Seen by PT they recommend short-term rehab/ ambulation with staff t.i.d. Vitamin B12 deficiency -level 152, unlikely to be directly related to patient's symptoms , Continue vitamin b12 supplements. 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 arranging for healthcare proxy Spoke with patient's daughter Fallon Fu and updated her regarding treatment plan of acute autoimmune encephalitis requiring prednisone taper and B12 replacement and possible discharge to rehab facility family request rehab closer to their home in [facility] ongoing hospitalization need: Encephalitis-need close monitoring of menatl status ,neurology follow up , West Nile virus pending) and safe disposition Quality Stroke Does the patient have a stroke diagnosis?: No VTE Prior VTE?: No VTE Risk Level:: Medical - moderate - high VTE Device Contraindication: Treatment Not Indicated VTE Drug Contraindication: N/A - Med Ordered
[2023-11-22] MEDS: Insulin Lispro 100 UNIT/ML 3 ML VIAL SUBCUT ×3 (11:39→21:19)
[2023-11-22] MEDS: Enoxaparin Sodium 40 MG/0.4 ML SYRINGE SUBCUT (11:40)
--- NOTE | 2023-11-22 12:56 | MHC.CM.PN ---
Addendum entered by Nirali Walters RN 11/22/23 14:51: Patient/family accepted bed from [facility]. Anticipate dc tomorrow. IMM delivered. Original Note: Patient's mental status continues to improve. Per MD likely to be medically cleared today vs tomorrow. CM met with patient. Alert, able to state his name, knows he is in the hospital in [place]. Reports he comes from home w/ his . Discussed plan for STR and patient is agreeable. Patient able to complete HCP naming his daughter Fallon as HCA. CM spoke w/ Fallon who is also agreeable to STR. Choices are 1) [facility] (is aware this is acute rehab and pt may not meet criteria), 2) [facility] and 3) [facility]. If not accepted by any of the choices, Fallon prefers any facility in [place], [place] or [place]. Referrals placed in [facility]. CM will continue to follow.
[2023-11-22 14:56] VITALS: BP 116/67; PULSE 75; RESP 16; TEMP 36.6; O2SAT 94
[2023-11-22 16:12] LABS: Glucose, Whole Blood 297 mg/dL (60-115)
[2023-11-22 19:45] VITALS: BP 149/76; PULSE 68; RESP 18; TEMP 36.7; O2SAT 95
[2023-11-22 20:05] LABS: Glucose, Whole Blood 285 mg/dL (60-115)
[2023-11-23 04:00] VITALS: BP 131/70; PULSE 60; RESP 16; TEMP 36.3; O2SAT 94
[2023-11-23 07:18] VITALS: BP 134/78; PULSE 61; RESP 12; TEMP 36.3; O2SAT 95
[2023-11-23 07:33] LABS: Glucose, Whole Blood 98 mg/dL (60-115)
[2023-11-23] MEDS: Folic Acid 1 MG TABLET PO (08:42)
[2023-11-23] MEDS: Multivitamin TABLET 1 TAB PO (08:42)
[2023-11-23] MEDS: Insulin Glargine,Hum.rec.anlog 100 UNIT/ML 10 ML VIAL 10 UNIT SUBCUT (08:42)
[2023-11-23] MEDS: predniSONE 20 MG TABLET 40 MG PO (08:42)
[2023-11-23] MEDS: Atorvastatin Calcium 10 MG TABLET PO (08:42)
[2023-11-23 08:43] VITALS: BP 134/78
[2023-11-23] MEDS: lisinopriL 20 MG TABLET PO (08:43)
[2023-11-23] MEDS: Thiamine HCL 100 MG TABLET PO (08:43)
[2023-11-23] MEDS: 0.9 % Sodium Chloride Flush 3 ML SYRINGE IVFLUSH (08:43)
[2023-11-23] MEDS: levETIRAcetam 250 MG TABLET PO (08:43)
--- NOTE | 2023-11-23 10:44 | MHC.CM.PN ---
Per MD rounds patient medically cleared for dc to [facility]. BLS transport scheduled for 12pm. Daughter/HCP and informed of dc. IMM was delivered 11/21.
--- NOTE | 2023-11-23 11:17 | P.DS_ITS ---
DS: Providers Provider Date of Service: 11/23/23 Date of admission: 11/12/23 16:00 Date of discharge: 11/23/23 Primary care physician: Lito Doherty MD Consults: 11/10/23 23:00 Consult to Case Management Stat Comment: 11/11/23 17:28 Consult to Care Team Stat Comment: Reason for consultation: depression ? Consult to Psychiatry Stat Consulting Provider: Psych Covering Reason for consultation: depression with possible catatonia 11/12/23 12:34 Consult to Neurology Routine Consulting Provider: [facility] Reason for consultation: global amnesia DS: Diagnosis Discharge Diagnosis (1) Encephalitis: Status: Acute DS: Summary Hospital Course Hospital Course: 8 year old male with history on non insulin dependent type 2 diabetes, hld, htn presented to the ED via EMS [place] [address] confused [place] police. The patient resides in [place], visited a [facility] where he left his ID and then drove to [place] for an unknown reason but ultimately ran out of gas on the highway. Upon questioning, the police found him confused and called EMS for transport and evaluation in the ED. Since in the ED, the patient has exhibited global amnesia, having no recollection of why he is here, about significant details of his life, and at times unable to recall his own name. He has been boarding in the ED for the past 2 days with unremarkable medical work up and upon evaluation by care team and psychiatry was recommended for medical admission for neurological evaluation. Upon questioning, the patient is unable to tell me who he is, does not even recall his name when given the information. He does not know where he is but recognizes that he may be in a hospital when asked. He does not know the year. He does not recall his (whom he lives with and cares for), his daughter, or where he resides. This author reminds him of his name and he is still unable to recall the name when asked again minutes later. Upon questioning his daughter, the patient has been exhibiting anxiety and panic attacks over the last few months with concerns that he cannot care for his , about HCP and living will etc. She states he has been acting strange for about 2 months. He was recently started on buspar by pcp but only took a few doses. He does not use any substances. He is calm upon questioning, not exhibiting restlessness, agitation, or anxiety. He has no complaints or concerns about him being here. Since arrival has been hypertensive, but vitals otherwise stable. He has not received his lisinopril in the ED at this time. Hematology studies unremamarkable. Renal function normal, no uremia. Lytes WNL. Glucose 116. Ammonia WNL. TSH WNL. VBG reassuring, no hypercapnia. Vitamin B12 and folic acid levels pending. CXR unremarkable. Head CT does show some chronic microvascular changes but no acute abnormality. Cervical spine CT negative for acute osseous abnormality. UTox negative. UA not indicative of infection. EKG shows NSR, no actue ischemic changes. Hopsital COurse Admitted to general medical floor.CT shows chronic microangiopathic but no acute intracranial abnormality or evidence of infarction;mri negative,No uremia, ammonia level normal. TSH normal, VBG reassuring without hypercapnia. Folic acid 11.7, vitamin B12 slightly low at 152;tick panel and lyme pcr negative. Syphilis RPR negative.LP-elevated protein levels ,encepahlities/meningitis panel neg ,csf cultures negative . Seen in consultation by Neurology; West Nile and autoimmune etiology pending at this time. Recommendation for Neurology was to consider a prednisone taper as outlined in continue with B12 folate and thiamine pending results. At this point in time his mentation has improved and he is medically acceptable for discharge to rehab to complete his prednisone taper awaiting further results. Time Attestation Discharge Coordination Time (in mins): 35 Quality: Safe Use of Opioids Does Pt have an Active Cancer Diagnosis on the Problem List?: No Quality: Stroke Does the patient have a stroke diagnosis?: No Physical Exam Vital Signs: Vital Signs: Last Vital Signs Temp 97.4 F 11/23/23 07:18 Pulse 61 11/23/23 07:18 Resp 12 11/23/23 07:18 BP 134/78 11/23/23 08:43 Pulse Ox 95 11/23/23 07:18 O2 Del Method Room Air 11/23/23 07:18 BMI result Body Mass Index 24.0 Const: Other: Awake alert oriented x2 but easily reoriented Resp: Other: Clear to auscultation bilaterally no rales rhonchi or wheezes Cardio: Other: No S4; positive S1-S2; no S3 murmurs rubs or gallops GI: Other: Soft nontender nondistended normoactive bowel sounds Neuro: Other: Cranial nerves 2-12 grossly intact as tested. Motor is 5/5 all extremities. Sensation is intact. Extrem: Other: No edema bilaterally DS: Data Data Completed and Pending Labs on day of discharge: Laboratory Results - last 24 hr 11/22/23 11/22/23 11/22/23 11:10 16:05 19:49 POC Glucose 228 H 297 H 285 H 11/23/23 07:17 POC Glucose 98 Discharge Plan Discharge Anticipated Discharge Date/Time: 11/23/23 11:20 Patient Disposition: Xfer Inpatient Rehab Fac Discharge Diagnosis: Viral encephalitis Referrals: Lito Doherty MD [Primary Care Provider] - 1 Week Discharge Medications: New cyanocobalamin (vitamin B-12) 1,000 mcg/mL Solution 1,000 mcg IM Q7D Qty: 10 0RF Rx Instructions: Use Q weekly x4 Then Q monthly insulin glargine [Lantus U-100 Insulin] 100 unit/mL Solution 10 unit subcut DAILY Qty: 10 0RF insulin lispro [Admelog U-100 Insulin lispro] 100 unit/mL Solution See Protocol subcut QIDACHS Qty: 10 0RF Protocol: Insulin Correction Scale Less than or equal to 110 ---- Give (units): 0 111 to 150 Give (units): 0 151 to 200 Give (units): 2 201 to 250 Give (units): 4 251 to 300 Give (units): 8 301 to 350 Give (units): 10 Greater than 350 Give (units): 12 Call MD if Blood Glucose > : 350 levetiracetam 250 mg Tablet 250 mg PO BID Qty: 60 0RF prednisone 20 mg tablet 40 mg PO DAILY Qty: 60 0RF Rx Instructions: Take prednisone 40 mg daily for 2 weeks, then 30 mg for 2 weeks, then 20 mg for 2 weeks, then 10 mg for 2 weeks, then continue 5 mg Continued lisinopril 20 mg tablet 20 mg PO DAILY simvastatin 20 mg tablet 20 mg PO BEDTIME Tradjenta 5 mg tablet 5 mg PO DAILY Discontinued buspirone 7.5 mg tablet 7.5 mg PO BID Discharge Orders: Discharge Order (Routine); Ordered 11/23/23 Ordered By: Nima Medina Diet: Diabetic diet Activity on Discharge: As tolerated Stand Alone Forms: Patient Portal Discharge page Print Language: Divehi Care Plan Goals: Prednisone tapering dose started 40 mg drop 10 mg Q 2 weekly as directed. Continue Keppra 250 mg 1 tablet twice daily Take vitamin B12 1000 mg Q weekly x4 dosages then Q monthly Health Concerns: Diabetes/hypertension Plan of Treatment: Need outpatient follow-up with Neurology for diagnosis of autoimmune encephalitis Assessment: As above
[2023-11-23 11:38] LABS: Glucose, Whole Blood 216 mg/dL (60-115)
[2023-11-23] MEDS: Enoxaparin Sodium 40 MG/0.4 ML SYRINGE SUBCUT (11:58)
[2023-11-23] MEDS: Insulin Lispro 100 UNIT/ML 3 ML VIAL SUBCUT (11:58)
--- NOTE | 2023-11-23 12:18 | PC.NURSE ---
Pt for discharge to [facility] report called to XU Larson on the [place] unit @ [phone] . transported via S
[2023-11-23 12:43] LABS: West Nile Virus IgM Antibody <0.90 index (<0.90); West Nile Virus, IgG 2.43 index (<1.30)
== END 2023-11-23 12:21 | DRG 98 ==
LOC: HO.ED 11-12 11:58 → HO.EDOVER 11-12 12:41 → HO.S3 11-12 13:49
PROVIDERS: Hospitalist; Internal Medicine; Physician Assistant; Student in an Organized Health Care Education/Training Program; Admitting Provider Physician Assistant; Emergency Provider Emergency Medicine; PCP Internal Medicine; Visit Provider Hospitalist
DX: A86 Unspecified viral encephalitis (principal); G93.40 Encephalopathy, unspecified; E53.8 Deficiency of other specified B group vitamins; I10 Essential (primary) hypertension; F03.90 Unspecified dementia, unspecified severity, without behavioral disturbance, psychotic disturbance, mood disturbance, and anxiety; E11.9 Type 2 diabetes mellitus without complications; D17.0 Benign lipomatous neoplasm of skin and subcutaneous tissue of head, face and neck; R94.01 Abnormal electroencephalogram [EEG]; E78.5 Hyperlipidemia, unspecified; Z79.4 Long term (current) use of insulin; Z79.84 Long term (current) use of oral hypoglycemic drugs; Z79.899 Other long term (current) drug therapy
CPT/HCPCS: 36415; 62328; 70450; 70551; 71046; 72125; 80048; 80053; 80076; 80143; 80179; 80307; 81001; 82140; 82607; 82746; 82803; 82945; 82947; 83036; 83690; 83735; 83880; 84157; 84443; 84484; 85025; 85027; 85610; 85652; 86140; 86255; 86341; 86617; 86618; 86780; 86788; 86789; 87015; 87070; 87205; 87468; 87469; 87478; 87483; 87484; 87798; 89051; 93005; 94799; 95816; 97116; 97162; 97530; 99221; 99285; J1650; J2250; J3420; S9485

== ENCOUNTER → 2023-11-10 19:35 | Outpatient (BNV) | payer MEDICARE, SELFPAY | PROVIDERS: Emergency Provider Emergency Medicine; Visit Provider Internal Medicine Cardiovascular Disease | DX: R94.31 Abnormal electrocardiogram [ECG] [EKG] (principal) | CPT/HCPCS: 93010 ==

== ENCOUNTER → 2023-11-11 12:59 | Outpatient (BNV) | payer MEDICARE, SELFPAY | PROVIDERS: Emergency Provider Emergency Medicine; Visit Provider Internal Medicine | DX: R94.31 Abnormal electrocardiogram [ECG] [EKG] (principal) | CPT/HCPCS: 93010 ==

== ENCOUNTER → 2023-11-12 12:29 | Outpatient (BNV) | payer MEDICARE, SELFPAY | PROVIDERS: Admitting Provider Physician Assistant; Emergency Provider Emergency Medicine; Visit Provider Psychiatry & Neurology Neurology | DX: G04.90 Encephalitis and encephalomyelitis, unspecified (principal) | CPT/HCPCS: 99222 ==

== ENCOUNTER → 2023-11-12 12:29 | Outpatient (BNV) | payer MEDICARE, SELFPAY | PROVIDERS: Admitting Provider Physician Assistant; Emergency Provider Emergency Medicine; Visit Provider Social Worker | DX: F29 Unspecified psychosis not due to a substance or known physiological condition (principal); R41.1 Anterograde amnesia; G93.40 Encephalopathy, unspecified | CPT/HCPCS: 99232 ==

== ENCOUNTER → 2023-11-12 12:29 | Outpatient (BNV) | payer MEDICARE, SELFPAY | PROVIDERS: Admitting Provider Physician Assistant; Emergency Provider Emergency Medicine; Visit Provider Internal Medicine | DX: G04.90 Encephalitis and encephalomyelitis, unspecified (principal) | CPT/HCPCS: 99223; 99231; 99232; 99239 ==

== ENCOUNTER 2023-11-12 16:00 | Outpatient (BNV) | payer MEDICARE, SELFPAY | END 2023-11-16 13:00 | PROVIDERS: Admitting Provider Physician Assistant; Emergency Provider Emergency Medicine; PCP Internal Medicine; Visit Provider Physician Assistant Surgical | DX: G93.40 Encephalopathy, unspecified (principal) | CPT/HCPCS: 62328 ==